=== PATIENT | male | born 1955 | race Caucasian/White ===

== ENCOUNTER 2019-03-22 09:40 | Outpatient (CLI) | payer BC, SELFPAY ==
--- NOTE | 2019-03-22 09:55 | MR_ITS ---
WS: [id number] MRI RIGHT hip, noncontrast. HISTORY: RIGHT hip pain. Trauma 1 year ago. COMPARISON: 01/09/2018. No acute fractures or marrow edema. Previously seen edema and partial tears involving the distal ilio psoas muscle and the gluteus medius and minimus have nearly resolved. Minimal increased signal in the gluteus minimus muscle lateral to the ilium. Significant improvement in the signal abnormality. No m uscle atrophy. No fluid collections. No marrow edema. Mild narrowing of the hip joints bilaterally. Increased signal in the RIGHT labrum consistent with a labral tear. MR/MR hip RT wo con* [id number] IMPRESSION: 1. Significant improvement in the tears involving the RIGHT gluteus minimus and medius muscles and the distal iliopsoas since 01/09/2018. 2. Minimal increased signal consistent with mild myositis in the RIGHT gluteus minimus muscle lateral to the ilium. 3. Superior RIGHT labral tear.
== END 2019-03-22 09:41 | disposition home or self-care (01) ==
LOC: RADSHAW 09:46
PROVIDERS: Family Provider Family Medicine; PCP Family Medicine; Visit Provider Family Medicine
DX: S76.011A Strain of muscle, fascia and tendon of right hip, initial encounter (principal); S73.191A Other sprain of right hip, initial encounter; M25.551 Pain in right hip; X58.XXXA Exposure to other specified factors, initial encounter
CPT/HCPCS: 73721

== ENCOUNTER → 2019-11-01 15:57 | Outpatient (BNVA) | payer BC, SELFPAY | PROVIDERS: Family Provider Family Medicine; PCP Family Medicine; Referring Provider Family Medicine; Visit Provider Dermatology | DX: L57.0 Actinic keratosis (principal); D18.01 Hemangioma of skin and subcutaneous tissue; D48.9 Neoplasm of uncertain behavior, unspecified; L72.0 Epidermal cyst | CPT/HCPCS: 11102; 17000; 17003; 88304; 88305; 99203; 99204 ==

== ENCOUNTER → 2019-11-28 09:48 | Outpatient (BNVA) | payer BC, SELFPAY | PROVIDERS: Family Provider Family Medicine; PCP Family Medicine; Visit Provider Licensed Practical Nurse | DX: M54.6 Pain in thoracic spine (principal); G89.29 Other chronic pain; Z98.890 Other specified postprocedural states; Z91.041 Radiographic dye allergy status; M53.3 Sacrococcygeal disorders, not elsewhere classified; I61.9 Nontraumatic intracerebral hemorrhage, unspecified | CPT/HCPCS: 99204 ==

== ENCOUNTER → 2019-12-05 09:10 | Outpatient (BNVA) | payer BC, SELFPAY | PROVIDERS: Family Provider Family Medicine; PCP Family Medicine; Visit Provider Dermatology | DX: C44.41 Basal cell carcinoma of skin of scalp and neck (principal); C44.91 Basal cell carcinoma of skin, unspecified; D48.9 Neoplasm of uncertain behavior, unspecified | CPT/HCPCS: 11622; 12042; 88304 ==

== ENCOUNTER 2019-12-12 11:43 | Outpatient (CLI) | payer BC, SELFPAY ==
--- NOTE | 2019-12-12 11:45 | MR_ITS ---
WS: [id number] MRI HEAD WITH CONTRAST TECHNIQUE: Sagittal T1, T2 axial, T2 axial FLAIR, axial susceptibility weighted imaging, axial diffus ion weighted images, and coronal T2 images were obtained. Pre and post-T1 axial and post T1 coronal i mages. ADC and FSPGR images. CLINICAL INFORMATION: MENINGIOMA;HEMIPLEGIA/HEMIPARESIS FOLLOWING CEREBRAL INFARCT COMPARISON: CT head 11 16,018 and 10 3018 FINDINGS: Prior postoperative changes prior right frontal craniotomy. Enhancing meningioma involving the midlin e sagittal sinus at the vertex. Surrounding encephalomalacia and gliosis likely due to prior subtotal resection and radiation therapy. Meningioma measures approximately 2.3 x 2.7 x 1.8 cm AP by transver se by craniocaudal. No prior MRI comparisons. On the prior CT this measured approximately 2.2 x 2.1 x 1.4 CM. Dystrophic calcification along the falx. Meningioma involves the midline sagittal sinus with occlusion. Sagittal sinus proximal and distal to the meningioma appears patent. No restricted diffusion to suggest acute ischemia. Ventricular system and basal cisterns are patent. Mild small vessel changes. Mild parenchymal volume loss. Chronic hemorrhagic infarct with encephaloma lacia involving the left thalamus with hemosiderin. Small vessel changes in the marta. Normal vascular flow voids at the skull base. Paranasal sinuses and mastoid air cells are well aerated. Normal optic chiasm and pituitary infundibulum. Chronic infarct in the left periventricular parietal white matter. IMPRESSION: 1. Prior postoperative changes right frontal craniotomy. 2. Enhancing meningioma involving the midline sagittal sinus at the vertex with surrounding encephal omalacia and gliosis. Meningioma measures approximately 2.3 x 2.7 x 1.8 cm slightly increased in size compared to the prior CT in 2018 where it measured 2.2 x 2.1 x 1.4 cm 3. Occlusion of the sagittal sinus at the level of the meningioma. Sagittal sinus proximal and dista l to the meningeal appears patent. 4. Chronic hemorrhagic infarct involving the left thalamus with hemosiderin. Chronic lacunar infarct involving the left periventricular parietal white matter. 5. Mild small vessel changes. Mild volume loss.
--- NOTE | 2019-12-12 11:45 | MR_ITS ---
WS: [id number] INDICATION: Meningioma TECHNIQUE: MR venogram without gadolinium enhancement with maximum intensity projection images. FINDINGS: Again seen is the meningioma involving the sagittal sinus at the midline vertex. High-grade narrowing with occlusion at the level of the meningioma. Suggestion of a tiny amount of peripheral c ollateral flow. Sagittal sinus proximal and distal to the meningioma appears patent. Distal jugular veins are patent. Sigmoid sinus and transverse sinuses are patent. Straight sinus is p atent. Normal internal cerebral veins. No other significant findings. MR/[place] [id number] IMPRESSION: 1. High-grade narrowing with occlusion of the sagittal sinus at the level of t he meningioma. Suggestion of a tiny amount of collateral flow. Sagittal sinus p roximal and distal to the meningioma is intact. 2. Normal sigmoid sinuses and transverse sinuses. 3. Straight sinus and internal cerebral veins are patent.
== END 2019-12-12 11:44 | disposition home or self-care (01) ==
LOC: RADSHAW 11:44
PROVIDERS: PCP Family Medicine; Visit Provider Neurological Surgery
DX: D32.9 Benign neoplasm of meninges, unspecified (principal); I69.351 Hemiplegia and hemiparesis following cerebral infarction affecting right dominant side; I63.89 Other cerebral infarction; I63.81 Other cerebral infarction due to occlusion or stenosis of small artery
CPT/HCPCS: 70544; 70553; A9579

== ENCOUNTER → 2019-12-24 09:29 | Outpatient (BNVA) | payer BC, SELFPAY | PROVIDERS: Family Provider Family Medicine; PCP Family Medicine; Visit Provider Anesthesiology Pain Medicine | DX: G89.0 Central pain syndrome (principal); M54.12 Radiculopathy, cervical region; M54.9 Dorsalgia, unspecified; M54.6 Pain in thoracic spine; I61.9 Nontraumatic intracerebral hemorrhage, unspecified; D32.0 Benign neoplasm of cerebral meninges; M53.3 Sacrococcygeal disorders, not elsewhere classified; S73.191A Other sprain of right hip, initial encounter; X58.XXXA Exposure to other specified factors, initial encounter; Z79.891 Long term (current) use of opiate analgesic | CPT/HCPCS: 99205 ==

== ENCOUNTER → 2020-01-02 14:44 | Outpatient (BNVA) | payer BC, SELFPAY | PROVIDERS: Family Provider Family Medicine; PCP Family Medicine; Visit Provider Licensed Practical Nurse | DX: M51.17 Intervertebral disc disorders with radiculopathy, lumbosacral region (principal); M48.062 Spinal stenosis, lumbar region with neurogenic claudication; M51.34 Other intervertebral disc degeneration, thoracic region; Z98.890 Other specified postprocedural states; Z91.041 Radiographic dye allergy status; M53.3 Sacrococcygeal disorders, not elsewhere classified; M50.90 Cervical disc disorder, unspecified, unspecified cervical region; I61.9 Nontraumatic intracerebral hemorrhage, unspecified | CPT/HCPCS: 99213 ==

== ENCOUNTER 2020-01-22 08:22 | Outpatient (CLI) | payer BC, SELFPAY ==
--- NOTE | 2020-01-22 08:43 | XRR_ITS ---
PROCEDURE INFORMATION: Exam: XR Lumbosacral Spine, 2 or 3 Views Exam date and time: 01/22/2020 8:43 AM Age: 64 years old Clinical indication: Low back pain; Prior surgery; Surgery type: L spine kidney TECHNIQUE: Imaging protocol: XR of the lumbosacral spine, 2 or 3 views. COMPARISON: CR Lumbar Spine 2-3 views* [id number] 08/30/2018 11:19 AM FINDINGS: Bones/joints: No fracture, dislocation or other acute bone or joint abnormalities are seen. Moderate DJD is present especially at the L4-L5 level with disc space narrowing sclerosis and osteophyte formation. There is sclerosis and hypertrophy of the lower lumbar facet joints. There is no malalignment on the flexion and extension views. Soft tissues: The filter projects on the inferior vena cava.. XR/XR lumbar spine f/e only [id number] IMPRESSION: 1. Moderate degenerative disease. 2. No malalignment.
--- NOTE | 2020-01-22 08:43 | MR_ITS ---
WS: [id number] MRI THORACIC SPINE with and without contrast. HISTORY: Thoracic pain COMPARISON: None available. TECHNIQUE: Multiplanar sequences are performed in sagittal and axial planes. Sagittal and axial T1 fa t sat sequences post-ProHance ProHance cc IV. Very slight increase in the thoracic kyphosis. Mild disc space narrowing and desiccation and osteophy tosis. Signal within the cord is normal. Shallow central disc protrusion at C7-T1. T1-2: Small osteophyte or disc protrusion LEFT paracentral. Mild LEFT foraminal narrowing. T2-3: Mild central disc bulging. T3-4: Asymmetric facet joint arthritis, greatest on the RIGHT. Additional small LEFT paracentral dis c protrusion. Very mild narrowing of the thecal sac. T4-5: Moderate sized LEFT paracentral disc protrusion with near contact on the cord. There is slight deformity of the LEFT lateral thoracic cord. T5-6: Moderate-sized central disc protrusion deforming the ventral thecal sac and causing concavity in the thoracic cord. T6-7: Moderate-sized RIGHT paracentral disc protrusion without significant effacement of CSF. T7-8: Shallow central disc protrusion without stenosis. T8-9: Normal. T9-10: Shallow central disc protrusion. T10-11: Mild facet joint arthritis. T11-12: Mild facet joint arthritis. Postcontrast images are negative for discitis or osteomyelitis. Subcutaneous nodule enhancing in the soft tissues posteriorly at the T7-8 level extends over a length of 3.2 cm and probably representing a sebaceous cyst. MR/MR thoracic spine wo/w [id number] IMPRESSION: 1. Multilevel small to moderate disc protrusions as described above. 2. Most significant disc protrusions at T4-5, T5-6, T6-7 and T7-8. Thoracic di scs are causing mild deformity of the thoracic cord on the LEFT at T4-5 and nicolette trally at T5-6. 3. No fracture. 4. No cord edema.
--- NOTE | 2020-01-22 08:43 | MR_ITS ---
WS: [id number] MRI LUMBAR SPINE WITH AND WITHOUT CONTRAST HISTORY: Low back pain COMPARISON: None available. TECHNIQUE: Sagittal and axial multisequence imaging is submitted. Sagittal and axial T1 fat sat seque nces post-ProHance 17 cc IV. Mild increase in the thoracic kyphosis. Thoracic spine MRI examination has been performed on the same day, please refer to that report for further details. Straightening of the normal lumbar lordosis. Disc space narrowing and desiccation most significant at L4-5. No marrow edema or fracture. Conus terminates normally at L1. L1-L2: Mild asymmetric LEFT ligamentum flavum hypertrophy. No stenosis. L2-L3: Mild annular disc bulging and osteophytic ridging greatest to the LEFT. Mild facet and ligamen audrey flavum hypertrophy. L3-L4: Mild annular disc bulging and osteophytic ridging. Shallow LEFT paracentral disc protrusion. D isc protrusion abuts the L4 nerve root in the LEFT subarticular recess. Very mild central canal narro wing. L4-L5: Mild osteophytic ridging. Osteophytosis encroaches into the subarticular foramen. Mild bilater al foraminal narrowing, slightly greater on the LEFT. There is increased hypertrophic bone extending into the LEFT subarticular recess. L5-S1: Bilateral facet joint arthritis, RIGHT greater than LEFT. Facet joint arthritis encroaches and displaces the RIGHT S1 nerve root anteriorly. Very mild central stenosis. Mild bilateral foraminal s tenosis due to combination of facet disease and osteophytosis. No discitis or osteomyelitis. No epidural abscess. MR/MR lumbar spine wo/w con [id number] IMPRESSION: 1. Advanced degenerative disc disease at L4-5 and mild spondylosis otherwise. 2. Increased hypertrophic bone in the LEFT subarticular recess of L4-5 encroac anjali into the subarticular recess and foramen. Moderate narrowing of the subart icular recess on the LEFT. 3. Small disc protrusion abuts the LEFT L4 nerve root in the L3-4 subarticular recess. Very minimal narrowing of the central canal. 4. Facet joint arthritis and osteophyte displaces the RIGHT S1 nerve root ante riorly.
[2020-01-22 10:36] LABS: Blood Urea Nitrogen 14 mg/dL (8-23); Glomerular Filtration Rate 136.1 mL/min (90-130)
== END 2020-01-22 08:23 | disposition home or self-care (01) ==
LOC: RADWPI 08:27
PROVIDERS: PCP Family Medicine; Visit Provider Licensed Practical Nurse
DX: M51.24 Other intervertebral disc displacement, thoracic region (principal); M51.36 Other intervertebral disc degeneration, lumbar region; M47.816 Spondylosis without myelopathy or radiculopathy, lumbar region; M51.26 Other intervertebral disc displacement, lumbar region; M25.78 Osteophyte, vertebrae
CPT/HCPCS: 72120; 72157; 72158; 82565; 84520; A9579

== ENCOUNTER → 2020-02-06 10:00 | Outpatient (BNVA) | payer BC, SELFPAY | PROVIDERS: PCP Family Medicine; Visit Provider Licensed Practical Nurse | DX: M51.17 Intervertebral disc disorders with radiculopathy, lumbosacral region (principal); L72.9 Follicular cyst of the skin and subcutaneous tissue, unspecified; M48.062 Spinal stenosis, lumbar region with neurogenic claudication; M47.816 Spondylosis without myelopathy or radiculopathy, lumbar region; M51.34 Other intervertebral disc degeneration, thoracic region; Z98.890 Other specified postprocedural states | CPT/HCPCS: 99213 ==

== ENCOUNTER → 2020-02-08 09:22 | Outpatient (BNVA) | payer BC, SELFPAY | PROVIDERS: PCP Family Medicine; Visit Provider Anesthesiology Pain Medicine | DX: G89.0 Central pain syndrome (principal); M79.604 Pain in right leg; M54.9 Dorsalgia, unspecified; M51.17 Intervertebral disc disorders with radiculopathy, lumbosacral region; I61.9 Nontraumatic intracerebral hemorrhage, unspecified; Z91.041 Radiographic dye allergy status; D32.0 Benign neoplasm of cerebral meninges; M53.3 Sacrococcygeal disorders, not elsewhere classified; S73.191A Other sprain of right hip, initial encounter; X58.XXXA Exposure to other specified factors, initial encounter | CPT/HCPCS: 99214 ==

== ENCOUNTER → 2020-05-01 10:53 | Outpatient (BNVA) | payer OTHER, SELFPAY | PROVIDERS: PCP Family Medicine; Visit Provider Orthopaedic Surgery | DX: Z01.812 Encounter for preprocedural laboratory examination (principal); M48.062 Spinal stenosis, lumbar region with neurogenic claudication | CPT/HCPCS: 87635 ==

== ENCOUNTER 2020-06-30 14:29 | Outpatient (CLI) | payer MEDICARE, SELFPAY ==
--- NOTE | 2020-06-30 14:52 | XRR_ITS ---
PROCEDURE INFORMATION: Exam: XR Right Hip Exam date and time: 06/30/2020 2:56 PM Age: 64 years old Clinical indication: Pain and injury or trauma; Fall; Blunt trauma (contusions or hematomas); Hip pain; Right hip; Injury date: 06/26/20; Injury details: Ivc filter, kidney; Prior surgery; Additional info: Right hip pain TECHNIQUE: Imaging protocol: XR Right hip. Views: 1 view hip with pelvis when performed. COMPARISON: MR hip RT wo con* [id number] 03/22/2019 12:04 PM FINDINGS: Bones/joints: Unremarkable. No acute fracture. Soft tissues: Unremarkable. XR/XR hip RT 2-3V wo/w pel* [id number] IMPRESSION: No acute findings.
--- NOTE | 2020-06-30 14:53 | XRR_ITS ---
PROCEDURE INFORMATION: Exam: XR Right Shoulder Exam date and time: 06/30/2020 2:56 PM Age: 64 years old Clinical indication: Pain and injury or trauma; Fall; Bleeding/hemorrhage; Shoulder; Right; Injury date: 06/26/20; Additional info: Right shoulder pain TECHNIQUE: Imaging protocol: XR Right shoulder. Views: 2 or more views. COMPARISON: CR Shoulder 2+ views RIGHT* [id number] 02/23/2018 1:36 PM FINDINGS: Bones/joints: Normal. Soft tissues: Normal. XR/XR shoulder RT min 2V* [id number] IMPRESSION: No acute findings.
--- NOTE | 2020-06-30 14:54 | XRR_ITS ---
PROCEDURE INFORMATION: Exam: XR Lumbosacral Spine Exam date and time: 06/30/2020 2:56 PM Age: 64 years old Clinical indication: Pain and injury or trauma; Fall; Blunt trauma (contusions or hematomas); Low back pain; Injury date: 06/26/20; Prior surgery; Surgery type: Back surgery x 3; Additional info: Lumbar radiculopathy TECHNIQUE: Imaging protocol: XR of the lumbosacral spine. Views: 2 or 3 views. COMPARISON: MR lumbar spine wo/w con [id number] 01/22/2020 9:17 AM FINDINGS: Bones/joints: Mild osteoarthritis is seen. No acute fracture. Normal alignment. Soft tissues: Unremarkable. A vena cava filter is in good position. XR/XR lumbar spine 2-3V* [id number] IMPRESSION: 1. Mild osteoarthritis 2. No acute bone abnormality. 3. Vena cava filter in good position
--- NOTE | 2020-06-30 14:54 | XRR_ITS ---
PROCEDURE INFORMATION: Exam: XR Thoracic Spine Exam date and time: 06/30/2020 2:56 PM Age: 64 years old Clinical indication: Pain and injury or trauma; Fall; Blunt trauma (contusions or hematomas); Pain in thoracic spine; Injury date: 06/26/20; Prior surgery; Surgery type: Back x 3, ivc filter; Additional info: Chronic pain TECHNIQUE: Imaging protocol: XR of the thoracic spine. Views: 3 views. COMPARISON: MR thoracic spine wo/w [id number] 01/22/2020 9:17 AM FINDINGS: Bones/joints: Moderate osteoarthritis is seen with multilevel intervertebral disc space narrowing and bone spurs with bridging. No acute fracture. Normal alignment. Soft tissues: Unremarkable. XR/XR thoracic spine 3V* [id number] IMPRESSION: 1. Multilevel osteoarthritis 2. Otherwise negative for acute bony abnormality
== END 2020-06-30 14:30 | disposition home or self-care (01) ==
PROVIDERS: PCP Family Medicine; Visit Provider Electrodiagnostic Medicine
DX: M25.551 Pain in right hip (principal); M25.511 Pain in right shoulder; G89.29 Other chronic pain; M54.16 Radiculopathy, lumbar region; M47.814 Spondylosis without myelopathy or radiculopathy, thoracic region; M47.816 Spondylosis without myelopathy or radiculopathy, lumbar region
CPT/HCPCS: 72072; 72100; 73030; 73502

== ENCOUNTER → 2020-11-07 11:19 | Outpatient (BNVA) | payer MEDICARE, SELFPAY | PROVIDERS: PCP Family Medicine; Visit Provider Orthopaedic Surgery | DX: Z01.812 Encounter for preprocedural laboratory examination (principal); Z20.822 Contact with and (suspected) exposure to COVID-19 | CPT/HCPCS: 87635 ==

== ENCOUNTER 2020-11-12 07:28 | Day surgery (SDC) | payer MEDICARE, SELFPAY ==
[2020-11-05 09:27] VITALS: BMI 32.7
--- NOTE | 2020-11-05 09:57 | P.ANESASSM_ITS ---
Pre-Anesthetic Assessment Pre-Anesthetic Assessment: Height/Weight: Height 1.93 m Weight 122.016 kg Preop Diagnosis: back pain Proposed Procedure: Operation Date: 11/12/20 11:40 Proposed Procedures p MIS decompression L3/4 03743 L4/5 03660 L5/S1 24803 M48.062(Not Applicable) - Terence Espinoza DO Familial anesthetic complications: none Social: Social History: No alcohol and No tobacco Exam: Pre-Anes Outpt Exam: alert, oriented x 3, clear to auscultation bilaterally and regular rate & rhythm Airway: Cervical ROM: WNL MP: 1 Dentition: Full CV/HEM: CV/HEM: DVT and HTN Comments: IVC filter : Comments: hx kidney cancer s/p partial nephrectomy Metabolic: Metabolic: DM Musc/skel: Musc/skel: Lower Back Pain Neuropsych: Neuropsych: CVA Comments: meningioma s/p resection 1999 Anesthetic Plan: ASA status: 3 Anesthesia: General Risk of > 500 ml blood loss (7ml/kg in children): No PFSH Anesthesia PFSH: Medical History Accelerated essential hypertension Allergy to iodinated contrast media Cervical disc disease Diabetes mellitus History of DVT (deep vein thrombosis) History of nonmelanoma skin cancer History of renal cell cancer Intervertebral disc disorder with radiculopathy of lumbosacral region Labral tear of right hip joint Lumbar stenosis with neurogenic claudication 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 Lumbar decompression 1986 [place] Lumbar decompression. Hx of cholecystectomy Family History Mother Stroke Grandmother Stroke Brother Stroke Social History Smoking and tobacco status: former smoker Second hand smoke exposure: No Alcohol intake: never Household members: spouse Marital status: Current occupational status: retired and disabled History of recent travel: No Data Anesthesia Cardiac Studies: No Data to Display
--- NOTE | 2020-11-12 | XR_ITS ---
WS: [id number] Lumbar spine, C-arm fluoroscopy, 11/12/2020 Clinical Data: lumbar decompression Comparison: None. Findings: Dr. Espinoza performed a lumbar decompression at L3-L4. XR/XR lumbar spine 2-3V* [id number] Impression: Lumbar decompression at L3-L4.
--- NOTE | 2020-11-12 | SCC_ITS ---
Procedure Done: 1. Right L3/4 laminectomy with partial facetectomy 2. Right revision L4/5 laminectomy with ppartial factectomy 3. Right revision L5/S1 laminectommy with partial facetectomy 46.8 seconds of fluoroscopic guidance, for a cumulative dose of 31.04 mGy, was provided to Dr. Espinoza by the radiology department. C-arm images of the lumbar spine were saved for the patient's permanent record. BOUCHRAD
--- NOTE | 2020-11-12 07:54 | ECG_ITS ---
[facility] Test Date: 2020-11-12 Pat Name: Kirby Boudreaux Department: Room: Gender: Male Deputy Director: : [id number] Requested By: Debbie Nelson Order Number: [id number] Hilda MD: Cris Chery M.D. Measurements Intervals [place] Rate: 69 P: 38 PA: 218 QRS: 46 QRSD: 91 T: 41 QT: 361 QTc: 387 Interpretive Statements SINUS RHYTHM WITH FIRST DEGREE AV BLOCK Compared to ECG 12/07/2017 20:02:54 No significant changes Electronically Signed On 11-12-2020 17:03:58 CDT by Cris Chery M.D. [id number]
--- NOTE | 2020-11-12 08:09 | PM.HP ---
Providers/Chief Complaint Primary Care Provider: Virgilio Devries MD Chief Complaint: MIS decompression L3/4 35836 L4/5 78376 L5/S1 6304 History of Present Illness Kirby Boudreaux is a 64 year old male Details: This is an established 64 year old male patient here today for follow up evaluation of his lower back pain. Onset: gradual Duration: years Characteristics: muscle cramping Severity: mild Location: entire right side of the back and down the right leg Radiating symptoms: foot and neck Aggravating factors: movement Alleviating factors: rest Neuro deficits: Patient denies numbness, tingling, weakness, incontinence of bowel/bladder, saddle anesthesia. Prior tx: multiple back surgeries, cortisone injections. Review of Systems Narrative: General ROS: negative for weight changes, fever ENT ROS: negative for nasal congestion, drainage or bleeding, sore throat, dysphagia or ear pain Eyes: PERRL Hematological and Lymphatic ROS: negative for swollen glands or abnormal bleeding Endocrine ROS: negative for polyuria/polydpsia or new changes in weight Respiratory ROS: negative for cough, shortness of breath, or wheezing Cardiovascular ROS: negative for chest pain or dyspnea on exertion Gastrointestinal ROS: negative for reflux, abdominal pain, change in bowel habits, or black or bloody stools Musculoskeletal ROS: negative for back pain, neck pain, or joint pain or swelling except for current problem Neurological ROS: negative for TIA or stoke symptoms Skin: no rashes Medications/Allergies Home Medications Medication Instructions Recorded Confirmed Last Taken Type amlodipine 10 mg tablet 10 mg PO DAILY 04/25/19 11/12/20 11/12/20 History aspirin 81 mg tablet,delayed 81 mg PO DAILY 04/25/19 11/12/20 11/10/20 History release atorvastatin 10 mg tablet 10 mg PO DAILY 04/25/19 11/12/20 11/11/20 History gabapentin 600 mg tablet 600 mg PO TID 04/25/19 11/12/20 11/11/20 History hydrocodone 5 mg-acetaminophen 325 1 tab PO Q8H PRN 04/25/19 11/12/20 11/11/20 History mg tablet levetiracetam 500 mg tablet 500 mg PO BID 04/25/19 11/12/20 11/11/20 History losartan 100 mg tablet 100 mg PO DAILY 04/25/19 11/12/20 11/11/20 History tamsulosin 0.4 mg capsule 0.8 mg PO DAILY 04/25/19 11/12/20 11/11/20 History carvedilol 12.5 mg tablet 12.5 mg PO BID 11/01/19 11/12/20 11/11/20 History cyclobenzaprine 10 mg tablet 10 mg PO TID 02/08/20 11/12/20 11/11/20 History duloxetine 30 mg capsule,delayed 30 mg PO DAILY 06/06/20 11/12/20 11/11/20 History release Allergies Allergy/AdvReac Type Severity Reaction Status Date / Time Iodinated Contrast Media Allergy anaphylaxis Verified 11/12/20 08:02 shrimp Allergy anaphylaxix Verified 11/12/20 08:02 PFSH Acute PFSH: Medical History Accelerated essential hypertension Allergy to iodinated contrast media Cervical disc disease Diabetes mellitus History of DVT (deep vein thrombosis) History of nonmelanoma skin cancer History of renal cell cancer Intervertebral disc disorder with radiculopathy of lumbosacral region Labral tear of right hip joint Lumbar stenosis with neurogenic claudication 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 [facility] Lumbar decompression 1995 [facility] Lumbar decompression 1986 [place] Lumbar decompression. Hx of cholecystectomy Family History Mother Stroke Grandmother Stroke Brother Stroke Social History Smoking and tobacco status: former smoker Second hand smoke exposure: No Alcohol intake: never Household members: spouse Marital status: Current occupational status: retired and disabled History of recent travel: No Physical Exam Narrative: EXAM NARRATIVE: CONSTITUTIONAL: The patient is a normal appearing [] in no apparent distress. GENERAL: Patient in no acute distress. CARDIAC: Regular rate and rhythm. CHEST: Normal inspiratory effort, normal respiratory rate. ABDOMEN: Soft and nontender. SKIN: Clear, warm and intact. NEURO?PSYCH: The patient is alert and oriented to person, place and time. Sensorv /SILT Motor StrengthShoulder abduction C5 5/5Wrist extension C6 5/5Elbow extension C7 5/5Hand Anesthesiologist And Critical Care C8 5/5Finger abduction T15/5 Radial/ Ulnar/ Median n intact LowerSensory (SILT)Motor StrengthHin flexion L2/3Ant/inner thigh 5/5Hip adduction L2/3 5/5Knee extension L4 Lat thigh, 5/5Toe dorsiflexion L5 5/5Ankle dorsiflexion L5/ O46Nycbuxh flexion S1 5/5 DTRBleeps 2+Triceps 2+Brachioradialis 2+Patellar 2+Achilles 2+ MUSCULOSKELETAL: [] UPPEREXTREMITIES: The patient had full active ROM in fingers, wrist, elbow, and shoulder. The patient demonstrated ability to fully flex/extend/abduct/adduct fingers, make ok sign, cross 2nd/3rd digits, extend 1st digit fully.. Radial pulse 2+, CR<2 seconds. LOWER EXTREMITIES: Pt has full, active ROM of toes, ankle, knee, and hip. Dorsalis pedis/posterior tibialis pulses 2+, CR<2 seconds. SPINE: Skin warm, dry, intact. A&P Assessment and plan (1) Lumbar stenosis with neurogenic claudication: Status: Acute Additional A&P Information failed conservative therapy Attestations Medical Necessity Statement*: failed conservative tx Coding Level of Care Code Acute Water Pollution Control Technician for [facility] Diagnoses Lumbar stenosis with neurogenic claudication M48.062
--- NOTE | 2020-11-12 08:11 | P.ANESUD_ITS ---
Pre-Anesthetic Update Pre-Anesthetic Assessment: Date of Surgery/Procedure: 11/12/20 Preop Kelly gnosis: back pain Proposed Procedure: Operation Date: 11/12/20 08:45 Proposed Procedures p MIS decompression L3/4 72626 L4/5 13617 L5/S1 96877 M48.062(Not Applicable) - Terence Espinoza, DO Any changes to Pre-Anesthetic Assessment?: No Exam: Pre-Anes Outpt Exam: alert, oriented x 3, clear to auscultation bilaterally and regular rate & rhythm Cardiac Studies: No Data to Display
--- NOTE | 2020-11-12 08:11 | ANES.PAUD2 ---
Pre-Anesthetic Update Pre-Anesthetic Assessment: Date of Surgery/Procedure: 11/12/20 Preop Diagnosis: back pain Proposed Procedure: Operation Date: 11/12/20 08:45 Proposed Procedures p MIS decompression L3/4 83989 L4/5 49753 L5/S1 05668 M48.062(Not Applicable) - Terence Espinoza, DO Any changes to Pre-Anesthetic Assessment?: No Exam: Pre-Anes Outpt Exam: alert, oriented x 3, clear to auscultation bilaterally and regular rate & rhythm Cardiac Studies: No Data to Display
[2020-11-12 08:17] LABS: Glucose Point of Care 137 mg/dL (70-110)
[2020-11-12 08:27] VITALS: BP 126/74; PULSE 81; RESP 18; TEMP 36.8; O2SAT 97
[2020-11-12] MEDS: sodium chloride 0.9% 1,000 ML 30 ML IV (08:31)
[2020-11-12 08:36] LABS: INR 0.95 (0.8-1.2)
--- NOTE | 2020-11-12 10:44 | PM.OP ---
Operative Report Date of procedure: November 12, 2020 Pre-op Diagnosis: lumbar stenosis with neurogenic cladication Post-op diagnosis: same Procedure Done: 1. Right L3/4 laminectomy with partial facetectomy 2. Right revision L4/5 laminectomy with ppartial factectomy 3. Right revision L5/S1 laminectommy with partial facetectomy Surgeon: Terence Espinoza Anesthesia: General Estimated blood loss (mL): 25 Condition: stable Disposition: PACU Procedure: 1. Right L3/4 laminectomy with partial facetectomy 2. Right revision L4/5 laminectomy with ppartial factectomy 3. Right revision L5/S1 laminectommy with partial facetectomy Patient is brought to the operative suite. After undergoing anesthesia they are placed in the supine position. All areas of impingement are well padded. Patient is then prepped and draped in the normal sterile fashion. A skin incision is made over the L3/4 level. This is confirmed under c-arm guidance. A series of dilators are passed and the tubular retractor is docked on the L3 lamina. A bovie is used to clear the soft tissue off the lamina and the L 3/4 facet joint. A high speed daniela is then used to perform the laminectomy and take down the medial aspect of the L 3/4 facet joint. A kerrison rongeure was then used to take down the remaining lamina and smooth the edge of the laminectomy up to the point where the ligamentum flavum attaches. Attention was then brought to the medial aspect of the facet joint. The remaining medial aspect of the superior and inferior aspect of the facet joint were taken down with the kerrison from the pedicle of L3 to L 4. The facet joint had significant hypertrophy. Attention was then brought to the Ligamentum Flavum. The ligament was taken down from the lamina of L3 to L4 and out medially to the remaining facet joint. The ligament was thick. The dura was then exposed. The dura was in good repair. The L3 nerve was then traced with a curette out the L3/4 foramen and found to be adequately decompressed. The L4 nerve was traced with a curette around the L4 pedicle. The lateral recess was opened with a kerrison helping to further decompress the L4 nerve. Wound is then irrigated copiously with saline and surgiflo is used to stop any bleeding. The tubular retractor is removed tion. A skin incision is made over the L4/5 level. This is confirmed under c-arm guidance. A series of dilators are passed and the tubular retractor is docked on the L4 lamina. A bovie is used to clear the soft tissue off the lamina and the L 4/5 facet joint. A high speed daniela is then used to perform the laminectomy and take down the medial aspect of the L 4/5 facet joint. A kerrison rongeure was then used to take down the remaining lamina and smooth the edge of the laminectomy up to the point where the ligamentum flavum attaches. There was a significant amount of scarring. the dura was peeled of the facet inorder to do the decompression. Attention was then brought to the medial aspect of the facet joint. The remaining medial aspect of the superior and inferior aspect of the facet joint were taken down with the kerrison from the pedicle of L4 to L 5. The facet joint had significant hypertrophy. Attention was then brought to the Ligamentum Flavum. The ligament was taken down from the lamina of L4 to L5 and out medially to the remaining facet joint. The ligament was thick. The dura was then exposed. The dura was in good repair. The L4 nerve was then traced with a curette out the L4/5 foramen and found to be adequately decompressed. The L5 nerve was traced with a curette around the L5 pedicle. The lateral recess was opened with a kerrison helping to further decompress the L5 nerve. Wound is then irrigated copiously with saline and surgiflo is used to stop any bleeding. The tubular retractor is removed A skin incision is made over the L5/S1 level. This is confirmed under c-arm guidance. A series of dilators are passed and the tubular retractor is docked on the L5 lamina. A bovie is used to clear the soft tissue off the lamina and the L 5/S1 facet joint. A high speed daniela is then used to perform the laminectomy and take down the medial aspect of the L 5/S1 facet joint. A kerrison rongeure was then used to take down the remaining lamina and smooth the edge of the laminectomy up to the point where the ligamentum flavum attaches.here was a significant amount of scarring. the dura was peeled of the facet inorder to do the decompression. Attention was then brought to the medial aspect of the facet joint. The remaining medial aspect of the superior and inferior aspect of the facet joint were taken down with the kerrison from the pedicle of L5 to S1. The facet joint had significant hypertrophy. Attention was then brought to the Ligamentum Flavum. The ligament was taken down from the lamina of L5 to S1 and out medially to the remaining facet joint. The ligament was thick. The dura was then exposed. The dura was in good repair. The L5 nerve was then traced with a curette out the L5/S1 foramen and found to be adequately decompressed. The S1 nerve was traced with a curette around the S1 pedicle. The lateral recess was opened with a kerrison helping to further decompress the S1 nerve. Wound is then irrigated copiously with saline and surgiflo is used to stop any bleeding. The tubular retractor is removed and the wound is closed with vicryl and monocryl suture. Glue is then used to protect the wound. A sterile dressing is then placed. Patient was then placed in the supine position and transferred to the PACU in stable condition
[2020-11-12 10:53] VITALS: BP 136/78; PULSE 85; RESP 15; TEMP 36.2; O2SAT 97
[2020-11-12 11:00] VITALS: BP 117/71; PULSE 83; RESP 13; O2SAT 100
[2020-11-12 11:05] VITALS: BP 113/68; PULSE 83; RESP 13; TEMP 36.2; O2SAT 95
[2020-11-12 11:11] VITALS: BP 107/67; PULSE 82; RESP 16; TEMP 36.2; O2SAT 95
[2020-11-12 11:33] VITALS: BP 106/65; PULSE 78; RESP 18; TEMP 36.1; O2SAT 92
[2020-11-12] MEDS: HYDROcodone-acetaminophen 5-325 mg Tablet 1 TAB PO (11:50)
--- NOTE | 2020-11-12 12:39 | PC.NURSE ---
PT AND FAMILY WANTED TO WAIT TO TALK TO DR DIANA UNTIL LEAVING ABOUT SOME NUMBNESS NOTED IN L LEG. DR DIANA CAME TO ROOM AFTER HIS OR CASE WAS DONE, ANSWERED ALL QUESTIONS TO SATISFACTION. DENIES PAIN FROM PAIN PILL. TAKEN TO PERSONAL VEHICLE WITH ALL BELONGINGS VIA W/C BY French HYDE RN. DENIES NEEDS AT THIS TIME.
--- NOTE | 2020-11-12 13:59 | ANE.PACU2 ---
Inpatient post-anesthesia follow up: Airway intact: Yes Vital signs: Temperature 97.0 F Pulse Rate 78 Respiratory Rate 18 Blood Pressure 106/65 Pulse Oximetry 92 Oxygen Delivery Me thod Room Air Oxygen Flow Rate 6 Fraction of Inspir ed Oxygen Hydration adequate: Yes Nausea and vomiting: No Pain level: 3 Mental status: Baseline
== END 2020-11-12 12:41 | disposition home or self-care (01) ==
PROVIDERS: Anesthesiology; PCP Family Medicine; Visit Provider Orthopaedic Surgery
PROC: (CPT 63005; principal; 2020-11-12 08:35)
DX: M48.062 Spinal stenosis, lumbar region with neurogenic claudication (principal); Z86.718 Personal history of other venous thrombosis and embolism; I10 Essential (primary) hypertension; Z85.528 Personal history of other malignant neoplasm of kidney; Z90.5 Acquired absence of kidney; E11.9 Type 2 diabetes mellitus without complications; Z87.891 Personal history of nicotine dependence; Z79.82 Long term (current) use of aspirin
CPT/HCPCS: 63047; 63048 ×2; 36415; 36416; 72100; 76000; 82962; 85610; 93005; J0690; J2370; J2704; J3010; J3490; J7030

== ENCOUNTER → 2020-12-18 08:58 | Outpatient (BNVA) | payer MEDICARE, SELFPAY | PROVIDERS: PCP Family Medicine; Visit Provider Physician Assistant | DX: Z48.89 Encounter for other specified surgical aftercare (principal) | CPT/HCPCS: 72100 ==

== ENCOUNTER 2021-02-24 09:51 | Outpatient (CLI) | payer MEDICARE, SELFPAY ==
--- NOTE | 2021-02-24 09:58 | MR_ITS ---
WS: [id number] MRI LUMBAR SPINE NONCONTRAST TECHNIQUE: Sagittal T1, T2 and STIR imaging. Axial T1 and T2 imaging. CLINICAL INFORMATION: POSTPROCEDURAL STATES COMPARISON: MRI January 22, 2020 FINDINGS: Mild lumbar curve. No acute compression. No high-grade central canal stenosis. Postoperative changes right L3-4, right L4-5, and right L5-S1 hemilaminectomies. Postoperative changes are new since 2019 L1-L2: Mild disc bulging with slight narrowing of the left subarticular recess. Mild facet arthropath y. Spinal canal and foramen are patent. L2-L3: Mild disc bulging with slight effacement of ventral thecal sac. Slight narrowing of the left s ubarticular recess. Mild facet arthropathy. Mild left foraminal narrowing. L3-L4: Shallow left pericentral protrusion with slight impingement on the traversing left L4 nerve ro ot. Mild central canal stenosis. Mild left foraminal narrowing. Right foramen is patent. Mild facet a rthropathy. L4-L5: Mild disc bulging and osteophytic ridging. Moderate facet arthropathy. Slight narrowing of the subarticular recess bilaterally. Mild central canal stenosis. Mild bilateral foraminal narrowing. L5-S1: Mild disc osteophytic ridging. Advanced facet arthropathy. Impingement on the traversing right S1 nerve root in the subarticular recess. Mild left foraminal narrowing. Small peripelvic and renal cortical cysts. Mild cervical central canal stenosis C4-C6 seen on the sco ut imaging. Small central protrusion seen in the thoracic spine at T4-T6 worse at T5-T6 with slight c ontact of the thoracic cord. MR/MR lumbar spine wo con* [id number] IMPRESSION: 1. Mild lumbar curve. No acute compression. No high-grade central canal stenos is. 2. Prior postoperative changes right hemilaminectomy is L3-L4 L4-L5 and L5-S1. 3. Tiny left shallow pericentral disc bulging L3-4 with slight impingement tra versing left L4 nerve root in the subarticular recess. Mild left L3-4 foraminal narrowing. 4. Mild central canal stenosis L3-L4 and L4-L5. Narrowing of the bilateral L4- 5 subarticular recess. 5. Disc osteophyte complex L5-S1 in combination with facet arthropathy impinge s the traversing right S1 nerve root. Mild left to right narrowing of the theca l sac. 6. Moderate facet arthropathy L3-L5.
== END 2021-02-24 09:52 | disposition home or self-care (01) ==
PROVIDERS: PCP Family Medicine; Visit Provider Physician Assistant
DX: Z98.890 Other specified postprocedural states (principal); M47.816 Spondylosis without myelopathy or radiculopathy, lumbar region; M25.78 Osteophyte, vertebrae; M48.061 Spinal stenosis, lumbar region without neurogenic claudication; M51.26 Other intervertebral disc displacement, lumbar region
CPT/HCPCS: 72148

== ENCOUNTER → 2021-02-25 07:54 | Outpatient (BNVA) | payer MEDICARE, SELFPAY | PROVIDERS: PCP Family Medicine; Referring Provider Physician Assistant; Visit Provider Specialist | DX: I69.151 Hemiplegia and hemiparesis following nontraumatic intracerebral hemorrhage affecting right dominant side (principal); I69.198 Other sequelae of nontraumatic intracerebral hemorrhage; G89.0 Central pain syndrome; G62.89 Other specified polyneuropathies; M50.90 Cervical disc disorder, unspecified, unspecified cervical region; Z98.890 Other specified postprocedural states; Z87.891 Personal history of nicotine dependence | CPT/HCPCS: 95861; 99204; 99205 ==

== ENCOUNTER 2021-03-10 09:51 | Outpatient (CLI) | payer MEDICARE, SELFPAY ==
--- NOTE | 2021-03-10 10:01 | XRR_ITS ---
PROCEDURE INFORMATION: Exam: XR Right Hip Exam date and time: 03/10/2021 10:01 AM Age: 65 years old Clinical indication: Hip pain; Right hip; Patient HX: Pain to hip x 3 years after stroke; Additional info: R hip pain TECHNIQUE: Imaging protocol: XR Right hip. Views: 1 view hip with pelvis when performed. Total images: 2 COMPARISON: CR XR hip RT 2-3V wo/w pel* [id number] 06/30/2020 3:00 PM FINDINGS: Bones/joints: Enthesophytes are present on the greater trochanter and ischial tuberosity. Small osseous bump at the femoral head neck junction unchanged from prior exam but can cause JIMMY. No acute fracture nor subluxation. No osseous erosion nor periosteal reaction. Soft tissues: Unremarkable. XR/XR hip RT 2-3V wo/w pel* [id number] IMPRESSION: 1. Small osseous bump at the femoral head neck junction unchanged from prior exam but can cause JIMMY. 2. No acute osseous pathology.
--- NOTE | 2021-03-10 10:01 | XRR_ITS ---
PROCEDURE INFORMATION: Exam: XR Right Knee Exam date and time: 03/10/2021 10:01 AM Age: 65 years old Clinical indication: Pain; Swelling or effusion of joint; Knee; Right; Additional info: R knee pain TECHNIQUE: Imaging protocol: XR Right knee. Views: 3 views. Total images: 3 COMPARISON: CR Foot 2 views, RIGHT [id number] 12/11/2014 10:33 AM FINDINGS: Bones/joints: Moderate marginal osteophytes are noted. Enthesophyte of the quadriceps tendon insertion site on the patella. No acute fracture nor subluxation. No osseous erosion nor periosteal reaction. Small joint effusion. Soft tissues: Normal. XR/XR knee RT 3V* [id number] IMPRESSION: 1. Moderate marginal osteophytes are noted. 2. Enthesophyte of the quadriceps tendon insertion site on the patella. 3. No acute osseous pathology. 4. Small joint effusion.
== END 2021-03-10 09:52 | disposition home or self-care (01) ==
PROVIDERS: PCP Family Medicine; Visit Provider Family Medicine
DX: M25.551 Pain in right hip (principal); M25.561 Pain in right knee; M25.761 Osteophyte, right knee; M25.461 Effusion, right knee
CPT/HCPCS: 73502; 73562

== ENCOUNTER 2021-04-07 07:43 | Outpatient (CLI) | payer MEDICARE, SELFPAY ==
--- NOTE | 2021-04-07 07:55 | MR_ITS ---
WS: [email or web address] MRI BRAIN WITHOUT CONTRAST HISTORY: History of brain tumor. COMPARISON: 12/12/2019 and MRI. TECHNIQUE: Diffusion imaging, multiplanar T1, T2 and FLAIR imaging obtained. Patient is status post RIGHT frontal craniotomy. There is a lobulated soft tissue mass centered at th e vertex extending bilaterally into the sagittal sinus. This mass is noted to be a meningioma as been previously biopsied. Mass measures 2.5 x 2.7 x 1.8 cm. The enhancement pattern cannot be determined as no contrast was given for this examination. There is adjacent encephalomalacia and gliosis. Probab ly from prior biopsy and possible radiation. Mass extends across the superior sagittal sinus. As comp ared to the prior study there is been no obvious interval change. No acute diffusion-weighted infarcts. Prior lacunar infarct with hemorrhage centered in the LEFT thal amus is unchanged. There is extensive confluent periventricular white matter signal with mild progres reuben since the prior examination. No new infarct. Any change in the sagittal sinus occlusion is limit ed without IV contrast. Mild volume loss in the cerebellum and cerebrum. Ventricles and extra-axial spaces are normal. No inferior displacement of cerebellar tonsils. The sella turcica and pituitary gland are unremarkabl e. Paranasal sinuses: Clear. Mastoid air cells: Normal. Calvarium and scalp: Intact. MR/MR head wo con* [id number] IMPRESSION: 1. Postoperative changes of a RIGHT frontal craniotomy are unchanged. 2. Lobulated soft tissue mass centered at the vertex extending across the sagi ttal sinus measures 2.5 x 2.7 x 1.8 cm. Not significantly increased in size or changed as compared to 12/12/2019. This study was performed without IV contrast so subtle areas of effacement or progression may not be evident. The adjacent g liosis and encephalomalacia are stable. 3. Prior hemorrhagic lacunar infarct in the LEFT thalamus. 4. Mild progression of chronic ischemic changes surrounding the ventricles.
== END 2021-04-07 07:44 | disposition home or self-care (01) ==
LOC: RAD 07:53
PROVIDERS: PCP Family Medicine; Visit Provider Specialist
DX: Z98.890 Other specified postprocedural states (principal); D32.0 Benign neoplasm of cerebral meninges; I61.9 Nontraumatic intracerebral hemorrhage, unspecified; M50.90 Cervical disc disorder, unspecified, unspecified cervical region; Z85.841 Personal history of malignant neoplasm of brain; I63.81 Other cerebral infarction due to occlusion or stenosis of small artery
CPT/HCPCS: 70551

== ENCOUNTER 2021-04-13 11:29 | Outpatient (CLI) | payer MEDICARE, SELFPAY ==
--- NOTE | 2021-04-13 11:38 | MR_ITS ---
WS: [email or web address] MRI CERVICAL SPINE NONCONTRAST TECHNIQUE: Sagittal T1, T2 and STIR imaging. Axial T2, gradient, and fiesta imaging. CLINICAL INFORMATION: Z98.890 - Other specified postprocedural states COMPARISON: None. FINDINGS: Straightening of the normal cervical lordosis. Cord signal is normal. Disc bulging worse at C4-C5 and C5-C6. C2-C3: Mild LEFT and no significant RIGHT foraminal narrowing. Spinal canal is patent. C3-C4: Disc osteophyte complex with endplate ridging. Moderate to severe LEFT bony foraminal narrowin g. Moderate RIGHT bony foraminal narrowing. Mild central canal stenosis. C4-C5: Disc osteophyte complex with endplate ridging. Mild to moderate central canal stenosis with sh allow central disc osteophyte protrusion. Slight indentation on cervical cord. Moderate to severe LEF T and mild to moderate RIGHT bony foraminal narrowing. Moderate facet arthropathy. C5-C6: Disc osteophyte complex with endplate ridging. Moderate central canal stenosis with slight ind entation on cervical cord. Moderate bilateral bony foraminal narrowing with moderate facet arthropath y. C6-C7: Shallow central disc protrusion. Mild central canal stenosis. Mild bilateral bony foraminal na rrowing. C7-T1: Tiny central disc protrusion. Spinal canal is patent. Mild LEFT and no significant RIGHT herminia inal narrowing. Visualized brain stem structures: Normal. Prevertebral soft tissues: Normal. MR/MR cervical spin wo con* [id number] IMPRESSION: Some images degraded by patient motion. 1. Straightening of the normal cervical lordosis. Cord signal is normal. 2. Mild to moderate central canal stenosis C3-C4, C4-C5 and C5-C6 worse at C4- C5 and C5-C6 with slight indentation on cervical cord. 3. Moderate to severe bony foraminal narrowing LEFT C3-C4, LEFT C4-C5, and LEF T C5-C6. 4. Tiny shallow central disc protrusions C6-C7 and C7-T1 without significant s willian canal narrowing.
== END 2021-04-13 11:30 | disposition home or self-care (01) ==
PROVIDERS: PCP Family Medicine; Visit Provider Specialist
DX: I61.9 Nontraumatic intracerebral hemorrhage, unspecified (principal); M50.90 Cervical disc disorder, unspecified, unspecified cervical region; Z98.890 Other specified postprocedural states
CPT/HCPCS: 72141

== ENCOUNTER → 2021-04-28 08:52 | Outpatient (BNVA) | payer MEDICARE, SELFPAY | PROVIDERS: PCP Family Medicine; Visit Provider Physician Assistant | DX: M17.0 Bilateral primary osteoarthritis of knee (principal) | CPT/HCPCS: 73560; 73565 ==

== ENCOUNTER → 2021-11-25 13:19 | Outpatient (BNVA) | payer MEDICARE, SELFPAY | PROVIDERS: PCP Family Medicine; Visit Provider Family Medicine | DX: Z00.00 Encounter for general adult medical examination without abnormal findings (principal); Z51.81 Encounter for therapeutic drug level monitoring; E11.9 Type 2 diabetes mellitus without complications; I61.9 Nontraumatic intracerebral hemorrhage, unspecified; Z13.220 Encounter for screening for lipoid disorders; R35.0 Frequency of micturition; I10 Essential (primary) hypertension | CPT/HCPCS: 80053; 80061; 83036; 84153; 85025 ==

== ENCOUNTER → 2022-05-17 10:02 | Outpatient (BNVA) | payer MEDICARE, SELFPAY | PROVIDERS: PCP Family Medicine; Visit Provider Family Medicine | DX: E11.9 Type 2 diabetes mellitus without complications (principal); R39.9 Unspecified symptoms and signs involving the genitourinary system; Z51.81 Encounter for therapeutic drug level monitoring | CPT/HCPCS: 80053; 81000; 83036; 85025; 87086 ==

== ENCOUNTER → 2022-06-07 08:43 | Outpatient (BNVA) | payer MEDICARE, SELFPAY | PROVIDERS: PCP Family Medicine; Visit Provider Podiatrist Foot & Ankle Surgery | DX: L60.0 Ingrowing nail (principal); G62.9 Polyneuropathy, unspecified; E11.42 Type 2 diabetes mellitus with diabetic polyneuropathy | CPT/HCPCS: 11730; 99204 ==

== ENCOUNTER 2022-06-09 07:51 | Outpatient (CLI) | payer MEDICARE, SELFPAY ==
--- NOTE | 2022-06-09 08:00 | US_ITS ---
WS: [email or web address] RENAL ULTRASOUND HISTORY: history of renal cancer COMPARISON: 09/26/2017 TECHNIQUE: 2-D and color Doppler imaging of the kidney submitted. Right kidney: 11.9 cm x 6.5 cm x 5.2 cm. Cortex: 1.2 cm Normal size kidney. Partial nephrectomy. No significant atrophy of the kidney. Left kidney: 12.9 cm x 5.7 cm x 5.8 cm. Cortex: 1.9 cm Normal echogenicity with no hydronephrosis or mass. Aorta: Normal. Urinary Bladder: Normal distention. US/US renal BI* [id number] IMPRESSION: 1. No significant renal atrophy and no solid mass identified. 2. By history partial RIGHT nephrectomy. There is no significant atrophy of th e RIGHT kidney. No recurrent mass identified.
== END 2022-06-09 07:52 | disposition home or self-care (01) ==
LOC: RAD 07:55
PROVIDERS: PCP Family Medicine; Visit Provider Family Medicine
DX: Z85.528 Personal history of other malignant neoplasm of kidney (principal)
CPT/HCPCS: 76770

== ENCOUNTER → 2022-06-18 08:42 | Outpatient (BNVA) | payer MEDICARE, SELFPAY | PROVIDERS: PCP Family Medicine; Visit Provider Podiatrist Foot & Ankle Surgery | DX: E11.9 Type 2 diabetes mellitus without complications (principal); M79.671 Pain in right foot | CPT/HCPCS: 99213 ==

== ENCOUNTER → 2022-08-09 08:54 | Outpatient (BNVA) | payer MEDICARE, SELFPAY | PROVIDERS: PCP Family Medicine; Visit Provider Podiatrist Foot & Ankle Surgery | DX: E11.42 Type 2 diabetes mellitus with diabetic polyneuropathy (principal); L60.0 Ingrowing nail; B35.1 Tinea unguium; M20.12 Hallux valgus (acquired), left foot; M20.11 Hallux valgus (acquired), right foot; M20.41 Other hammer toe(s) (acquired), right foot; M20.42 Other hammer toe(s) (acquired), left foot | CPT/HCPCS: 11721 ==

== ENCOUNTER → 2022-10-27 09:14 | Outpatient (BNVA) | payer MEDICARE, SELFPAY | PROVIDERS: PCP Family Medicine; Visit Provider Nurse Practitioner Family | DX: L82.1 Other seborrheic keratosis (principal); L57.0 Actinic keratosis; L72.0 Epidermal cyst; L81.4 Other melanin hyperpigmentation; L82.0 Inflamed seborrheic keratosis; Z87.891 Personal history of nicotine dependence; Z85.828 Personal history of other malignant neoplasm of skin; L57.8 Other skin changes due to chronic exposure to nonionizing radiation; L85.3 Xerosis cutis; D22.5 Melanocytic nevi of trunk | CPT/HCPCS: 17004; 17110; 99213 ==

== ENCOUNTER → 2022-11-10 08:11 | Outpatient (BNVA) | payer MEDICARE, SELFPAY | PROVIDERS: PCP Family Medicine; Visit Provider Dermatology | DX: L72.0 Epidermal cyst (principal) | CPT/HCPCS: 11403; 12032 ==

== ENCOUNTER → 2022-11-17 10:09 | Outpatient (BNVA) | payer MEDICARE, SELFPAY | PROVIDERS: PCP Family Medicine; Visit Provider Nurse Practitioner Family | DX: Z48.02 Encounter for removal of sutures (principal); Z85.828 Personal history of other malignant neoplasm of skin | CPT/HCPCS: 99213 ==

== ENCOUNTER → 2022-12-02 14:04 | Outpatient (BNVA) | payer MEDICARE, SELFPAY | PROVIDERS: PCP Family Medicine; Visit Provider Nurse Practitioner Family | DX: Z08 Encounter for follow-up examination after completed treatment for malignant neoplasm (principal); Z85.828 Personal history of other malignant neoplasm of skin; Z48.817 Encounter for surgical aftercare following surgery on the skin and subcutaneous tissue | CPT/HCPCS: 99213 ==

== ENCOUNTER → 2022-12-06 08:35 | Outpatient (BNVA) | payer MEDICARE, SELFPAY | PROVIDERS: PCP Family Medicine; Visit Provider Podiatrist Foot & Ankle Surgery | DX: B35.1 Tinea unguium; E11.42 Type 2 diabetes mellitus with diabetic polyneuropathy; M20.12 Hallux valgus (acquired), left foot; M20.11 Hallux valgus (acquired), right foot; M20.40 Other hammer toe(s) (acquired), unspecified foot; S93.601A Unspecified sprain of right foot, initial encounter; S92.354A Nondisplaced fracture of fifth metatarsal bone, right foot, initial encounter for closed fracture; W19.XXXA Unspecified fall, initial encounter | CPT/HCPCS: 11721; 73630; 99213 ==

== ENCOUNTER 2022-12-09 14:34 | Outpatient (CLI) | payer MEDICARE, SELFPAY ==
--- NOTE | 2022-12-09 15:13 | XR_ITS ---
WS: [email or web address] EXAMINATION: XR knee RT 3V* [id number] REASON FOR EXAM: Right knee pain COMPARISON: 04/28/2021 ORDER DATE: 12/09/2022 3:25 PM FINDINGS: There is no fracture or dislocation. Marked degenerative thinning of the medial joint lavinia rtment with near [id number] articulation. Calcification of the lateral meniscus. Large posterior patella spurs noted. No significant joint effusion. IMPRESSION: 1. No fracture or joint effusion. 2. Advanced narrowing of the medial joint compartment and chondrocalcinosis. Varus deformity.
--- NOTE | 2022-12-09 15:13 | XR_ITS ---
WS: [email or web address] EXAMINATION: XR hip BI m 5V wo/w pel* [id number] REASON FOR EXAM: Bilateral hip pain COMPARISON: None available. ORDER DATE: 12/09/2022 3:25 PM TECHNIQUE: Frontal internal/external rotation views of both hips were obtained. X-RAY FINDINGS: Bones/joints: Enthesophytes are present on the greater trochanter and ischial tuberosity of each hip. Small osseous bump at the femoral head neck junction unchanged from prior exam but can cause JIMMY also bilateral. No acute fracture nor subluxation. No osseous erosion nor periosteal reaction. Soft tissues: Unremarkable. IMPRESSION: 1. Bilateral osseous bump at the femoral head neck junction unchanged from prior exam but can cause JIMMY. 2. No acute osseous pathology.
--- NOTE | 2022-12-09 15:13 | XR_ITS ---
WS: [email or web address] EXAMINATION: XR knee LT 3V* [id number] REASON FOR EXAM: Knee pain left COMPARISON: 04/28/2021 ORDER DATE: 12/09/2022 3:25 PM FINDINGS: There are marginal osteophytes associated with the tibial spines, patella and other articular margins with medial and patellofemoral compartment narrowing. There is no sign of any acute fracture or disl ocation. There are numerous posterior osteochondromas and chondrocalcinosis. IMPRESSION: MEDIAL AND PATELLOFEMORAL COMPARTMENT NARROWING WITH OSTEOARTHRITIC CHANGES.
== END 2022-12-09 14:35 | disposition home or self-care (01) ==
PROVIDERS: PCP Family Medicine; Visit Provider Family Medicine
DX: M25.551 Pain in right hip (principal); M25.552 Pain in left hip; M17.12 Unilateral primary osteoarthritis, left knee; M11.261 Other chondrocalcinosis, right knee; Z51.81 Encounter for therapeutic drug level monitoring; E11.9 Type 2 diabetes mellitus without complications; I61.9 Nontraumatic intracerebral hemorrhage, unspecified; Z13.220 Encounter for screening for lipoid disorders
CPT/HCPCS: 73523; 73562; 80053; 80061; 83036; 85025

== ENCOUNTER → 2023-02-07 07:59 | Outpatient (BNVA) | payer MEDICARE, SELFPAY | PROVIDERS: PCP Family Medicine; Visit Provider Podiatrist Foot & Ankle Surgery | DX: B35.1 Tinea unguium (principal); E11.42 Type 2 diabetes mellitus with diabetic polyneuropathy; M20.10 Hallux valgus (acquired), unspecified foot; M20.40 Other hammer toe(s) (acquired), unspecified foot; M20.12 Hallux valgus (acquired), left foot; M20.11 Hallux valgus (acquired), right foot; Z79.84 Long term (current) use of oral hypoglycemic drugs | CPT/HCPCS: 11721 ==

== ENCOUNTER → 2023-03-01 09:37 | Outpatient (BNVA) | payer MEDICARE, SELFPAY | PROVIDERS: PCP Family Medicine; Visit Provider Nurse Practitioner Family | DX: L57.0 Actinic keratosis (principal); L57.8 Other skin changes due to chronic exposure to nonionizing radiation; L81.4 Other melanin hyperpigmentation; Z85.828 Personal history of other malignant neoplasm of skin | CPT/HCPCS: 17004; 99214 ==

== ENCOUNTER → 2023-05-02 08:31 | Outpatient (BNVA) | payer MEDICARE, SELFPAY | PROVIDERS: PCP Family Medicine; Visit Provider Podiatrist Foot & Ankle Surgery | DX: B35.1 Tinea unguium; E11.42 Type 2 diabetes mellitus with diabetic polyneuropathy; M20.40 Other hammer toe(s) (acquired), unspecified foot; M20.11 Hallux valgus (acquired), right foot; M20.12 Hallux valgus (acquired), left foot; Z79.84 Long term (current) use of oral hypoglycemic drugs | CPT/HCPCS: 11721; 73630; 99213 ==

== ENCOUNTER → 2023-05-09 08:14 | Outpatient (BNVA) | payer MEDICARE, SELFPAY | PROVIDERS: PCP Family Medicine; Visit Provider Nurse Practitioner Family | DX: L57.0 Actinic keratosis (principal); L57.8 Other skin changes due to chronic exposure to nonionizing radiation; L81.4 Other melanin hyperpigmentation; D23.71 Other benign neoplasm of skin of right lower limb, including hip; Z85.828 Personal history of other malignant neoplasm of skin; L91.8 Other hypertrophic disorders of the skin; L85.3 Xerosis cutis | CPT/HCPCS: 11200; 17000; 99213 ==

== ENCOUNTER 2023-07-04 09:07 | Inpatient (IN) | payer MEDICARE, SELFPAY ==
[2023-07-04] VITALS (28 sets, daily range): BP systolic 91–117; BP diastolic 60–79; PULSE 73–102; RESP 15–18; TEMP 36.4–37.1; O2SAT 75–98; BMI 32.0; BMI 33.6
--- NOTE | 2023-07-04 09:17 | XRR_ITS ---
PROCEDURE INFORMATION: Exam: XR Right Shoulder Exam date and time: 07/04/2023 11:38 AM Age: 67 years old Clinical indication: Injury or trauma; Fall; Blunt trauma (contusions or hematomas); Shoulder; Right TECHNIQUE: Imaging protocol: Radiologic exam of the right shoulder. Views: 2 or more views. COMPARISON: CR XR shoulder RT min 2V* [id number] 06/30/2020 3:00 PM FINDINGS: Bones/joints: No acute fracture or dislocation. Joint spaces are preserved. Lungs: Interstitial thickening in the right perihilar region, suggestive of mild edema. Soft tissues: Normal. XR/XR shoulder RT min 2V* [id number] IMPRESSION: No acute fracture or dislocation.
--- NOTE | 2023-07-04 09:18 | ED_ITS ---
HPI - Fall 2 General: Chief Complaint: Extremity Injury, Lower Stated Complaint: Fall/ Hip shoulder pain Time Seen by Provider: 07/04/23 09:11 Source: patient and EMS Mode of arrival: EMS Limitations: no limitations History of Present Illness: Patient is a nice 67-year-old male here via EMS for evaluation following a fall. Patient states he normally ambulates with the help of a cane as he has chronic right-sided deficits from a previous CVA. He also suffers from chronic pain on the right side. He also has chronic back pain. He has had previous back surgery. He states today he fell and landed on the right side and complains of severe right hip and pelvis pain as well as right shoulder pain. He denies striking his head or LOC. He is not complaining of any neck pain or worse back pain than his baseline. He is not on anticoagulation. States he is not able to get himself up following the fall. PMH significant for previous hemorrhagic CVA, meningioma brain tumor, history of renal cell carcinoma with partial nephrectomy, HTN, BPH, diabetes, chronic back pain/previous back surgeries. MD complaint: fall Onset (ago): hour(s) Fall from: standing Fall witnessed: yes, by family Place fall occurred: home Loss of consciousness: None Prolonged down time: no Symptoms prior to fall: none Context: tripped/slipped Location of injury - extremities: Right: shoulder Severity: severe Severity scale (1-10): 10 Associated symptoms-after fall: Reports no associated symptoms; Denies abdominal pain, chest pain, headache(s), hematuria, lightheadedness or neck pain Review of Systems 2 Eyes: Denies: change in vision, blurry vision, photophobia, eye discharge, floaters or seeing flashes ENMT: Denies: throat pain, odynophagia, ear or mastoid pain, ear discharge, nasal discharge, epistaxis or sinus pain Card: Denies: chest pain, palpitations, lightheadedness, syncope or pre- syncope Resp: Denies: dyspnea or pain on inspiration GI: Denies: abdominal pain : Denies: flank pain or hematuria Musc: Reports: back pain (chronic-at baseline) and joint pain (R hip, R shoulder); Denies: neck pain, extremity pain or joint swelling Neuro: Denies: headache(s), numbness in extremities, weakness in extremities, sensory changes or dizziness PFSH ED 2 PFSH: Medical History (Updated 07/04/23 @ 13:23 by RANDY Chisholm) Benign prostatic hyperplasia with lower urinary tract symptoms Chronic thoracic back pain History of nonmelanoma skin cancer Subcutaneous cyst Cervical disc disease Osteoarthritis of lumbar spine Lumbar stenosis with neurogenic claudication Intervertebral disc disorder with radiculopathy of lumbosacral region Thoracic degenerative disc disease Thalamic hemorrhage with stroke 12/07/2017 Acute hemorrhage involving the left thalamus and basal ganglia Allergy to iodinated contrast media Meningioma of cerebellum Presence of IVC filter Thalamic pain syndrome Accelerated essential hypertension Diabetes mellitus History of renal cell cancer History of DVT (deep vein thrombosis) Labral tear of right hip joint Surgical History (Updated 07/04/23 @ 12:38 by Hanh Reardon MD) History of colonoscopy 02/2022 Dr Werner - several sessile polyps removed, few small internal hemorrhoids. Follow up recommended in 3 years (2024). History of lumbar surgery 2020 Dr. Olga PHILLIPS - Right L3/4 laminectomy with partial facetectomy, Right revision L4/5 laminectomy with partial facetectomy, Right revision L5/S1 laminectomy with partial facetectomy 2003 Dr. Hermila Duncan [facility] [place] - Lumbar decompression 1995 [facility] - Lumbar decompression 1986 [place] - Lumbar decompression History of hernia repair History of appendectomy H/O partial nephrectomy right Hx of cholecystectomy Family History Mother Stroke Grandmother Stroke Brother Stroke Social History Smoking and tobacco/nicotine status: never used tobacco/nicotine Second hand smoke exposure: No Alcohol intake: never Substance/Drug Use: never Household members: spouse Marital status: Current occupational status: retired and disabled Physical Exam 2 Const: COMMON NORMALS: patient oriented x3, no limitations, healthy appearing, alert and well nourished GENERAL APPEARANCE: in distress (complaining of hip/pelvis pain and shoulder pain) ORIENTATION/CONSCIOUSNESS: Yes awake, Yes oriented to person, Yes oriented to place and Yes oriented to time HENMT: COMMON NORMALS: normocephalic, atraumatic and TM's normal bilaterally HEAD & SCALP: normal to inspection, normocephalic and atraumatic; no Chino's sign, no hematoma and no raccoon eyes FACE & SINUS: normal facial exam TYMPANIC MEMBRANE: TM's normal bilaterally MOUTH: other (no intraoral injuries noted) Eye: COMMON NORMALS: Equal, round and reactive pupils present and EOMs intact bilaterally GENERAL EYE: appearance normal, both eyes and all related structures and normal light reflex PUPIL: Yes Equal, round and reactive pupils present DIRECT OPHTHALMOSCOPY: Yes normal light reflex Neck/C-Spine: COMMON NORMALS: full ROM GENERAL: Yes normal visual inspection CERVICAL SPINE: Yes cervical ROM normal, No pain with cervical ROM, No Cervical spine tenderness, No step off deformity and No Paracervical muscle tenderness Chest: COMMONS NORMALS: normal inspection of the chest and normal palpation of entire chest wall Resp: COMMON NORMALS: normal respiratory effort and clear to auscultation bilaterally AUSCULTATION: clear to auscultation bilaterally Cardio: COMMON NORMALS: regular rate and regular rhythm RATE: regular rate RHYTHM: regular rhythm GI: COMMON NORMALS: Normal to inspection, nondistended, normoactive bowel sounds present, Soft to palpation, non-tender, No hepatosplenomegaly present and no masses INSPECTION: Yes normal to inspection and No abdominal wall ecchymosis AUSCULTATION: Yes normoactive bowel sounds PALPATION: Yes Soft to palpation and Yes No hepatosplenomegaly present Back/Pelvis: COMMON NORMALS: thoracic and lumbar spine normal to inspection, no thoracic nor lumbar tenderness and thoraco-lumbar ROM normal Extremity: COMMON NORMALS: normal to inspection GENERAL: Yes normal exam except as noted RIGHT UPPER EXTREMITY: Yes shoulder joint RIGHT LOWER EXTREMITY: Yes hip joint OTHER: pt is lying on his L side with his legs drawn up and will not move out of this position making it difficult to fully assess pelvis and R hip; shortening/rotation can not be assessed; I do not palpate any obvious bony abnormalities; distal pulses normal has fairly good ROM of R shoulder although states this elicits pain; distal pulses normal; chronic sensory deficits from previous CVA Neuro: IVON COMA SCALE: document GCS findings Ivon coma scale eye opening: Spontaneous [place] coma scale verbal response: Orientated [place] coma scale motor response: Obey commands Ivon coma scale total score: 15 COMMON NORMALS: patient oriented x3 SENSORIUM/ORIENTATION: Yes alert, Yes oriented to person, Yes oriented to place and Yes oriented to time SPEECH: speech normal GAIT: Yes Normal gait present Skin: COMMON NORMALS: no rashes or lesions noted GENERAL SKIN EXAM: no rashes or lesions noted TRAUMA: no lacerations or abrasions Course 2 Consultations: Consultation #1: Dr. Espinoza-recommends hospital admission and he will consult; possible OR later today Vital Signs: Vital signs: Vital Signs Temperature 97.6 F 07/04/23 13:05 Pulse Rate 82 07/04/23 13:05 Respiratory Rate 16 07/04/23 13:05 Blood Pressure 117/64 07/04/23 13:05 Pulse Oximetry 92 07/04/23 13:05 Oxygen Delivery Me thod Nasal Cannula 07/04/23 13:05 Oxygen Flow Rate 2.0 07/04/23 13:05 MDM - Fall Medical Decision Making Patient is a nice 67-year-old male here for trip and fall onto his right side complaining of right hip and right shoulder pain. He was found to have a displaced and impacted femoral neck fracture. I spoke to Dr. Espinoza who will plan on OR later today. Spoke to hospitalist Dr. Reardon who will admit. Of note- patient did require oxygen here following opiate dosing. Pain was difficult control and physical exam was limited as patient could not roll off of his left side secondary to pain. Lab Data 07/04/23 09:25 07/04/23 09:25 Radiology Impressions Shoulder X-Ray 07/04/23 09:17 IMPRESSION: No acute fracture or dislocation. Pelvis CT 07/04/23 10:58 IMPRESSION: Minimally displaced and impacted right femoral neck fracture. Chest X-Ray 07/04/23 11:48 IMPRESSION: Perihilar interstitial opacities suggestive of edema or infection. Laboratory Results WBC 6.01 10^3/uL (3.29-11.43) 07/04/23 09:25 RBC 4.63 10^6/uL (3.85-5.65) 07/04/23 09:25 Hgb 14.10 g/dL (11.27-16.99) 07/04/23 09:25 Hct 41.0 % (37-53) 07/04/23 09:25 MCV 88.6 fl (82-101) 07/04/23 09:25 MCH 30.5 pg (27-33) 07/04/23 09:25 MCHC 34.4 g/dL (30-55) 07/04/23 09:25 RDW 12.6 % (12.1-15.1) 07/04/23 09:25 Plt Count 227 10^3/cmm (157-399) 07/04/23 09:25 MPV 10.3 fL (7.4-10.4) 07/04/23 09:25 Neut % (Auto) 60.0 % 07/04/23 09:25 Lymph % (Auto) 22.8 % 07/04/23 09:25 [place] % (Auto) 10.0 % 07/04/23 09:25 Eos % (Auto) 5.3 % 07/04/23 09:25 Baso % (Auto) 1.2 % 07/04/23 09:25 Neut # (Auto) 3.61 10^3/uL (1.8-7.7) 07/04/23 09:25 Lymph # (Auto) 1.4 10^3/uL (0.8-4.8) 07/04/23 09:25 [place] # (Auto) 0.6 10^3/uL (0.2-0.9) 07/04/23 09:25 Eos # (Auto) 0.3 10^3/uL (0.0-0.8) 07/04/23 09:25 Baso # (Auto) 0.1 10^3/uL (0.0-0.1) 07/04/23 09:25 Nucleated RBC % (auto) 0 % 07/04/23 09:25 Nucleated RBCs # 0.0 /100WBC 07/04/23 09:25 Sodium 143 mmol/L (136-145) 07/04/23 09:25 Potassium 4.7 mmol/L (3.5-5.1) 07/04/23 09:25 Chloride 106 mmol/L (98-107) 07/04/23 09:25 Carbon Dioxide 26 mmol/L (22-29) 07/04/23 09:25 Anion Gap 15.7 (5-19) 07/04/23 09:25 BUN 15 mg/dL (8-23) 07/04/23 09:25 Creatinine 0.7 mg/dL (0.7-1.2) 07/04/23 09:25 GFR Calculation 112.8 mL/min (90-130) 07/04/23 09:25 Glucose 166 mg/dL (65-115) H 07/04/23 09:25 POC Glucose 151 mg/dL (70-110) H 07/04/23 13:17 Calculated Osmolality 301 mOsm/kg (285-295) H 07/04/23 09:25 Calcium 9.1 mg/dL (8.5-10.5) 07/04/23 09:25 Total Bilirubin 0.9 mg/dL (0.15-1.2) 07/04/23 09:25 AST 31 U/L (0-40) 07/04/23 09:25 ALT 51 U/L (0-41) H 07/04/23 09:25 Alkaline Phosphatase 108 U/L (40-130) 07/04/23 09:25 Total Protein 7.1 g/dL (6.6-8.7) 07/04/23 09:25 Albumin 4.4 g/dL (3.5-5.2) 07/04/23 09:25 Globulin 2.7 g/dL (1.3-4.6) 07/04/23 09:25 Urine Color Yellow (Yellow) 07/04/23 12:09 Urine Appearance Clear (CLEAR) 07/04/23 12:09 Urine pH 5 (5-7) 07/04/23 12:09 Ur Specific [place] 1.025 (1.005-1.030) 07/04/23 12:09 Urine Protein 1+ (Negative) H 07/04/23 12:09 Urine Glucose (UA) Norm (Normal) 07/04/23 12:09 Urine Ketones 1+ (Negative) H 07/04/23 12:09 Urine Blood Neg (Negative) 07/04/23 12:09 Urine Nitrate Negative (Negative) 07/04/23 12:09 Urine Bilirubin Neg (Negative) 07/04/23 12:09 Urine Urobilinogen 1 mg/dL (Negative) H 07/04/23 12:09 Ur Leukocyte Esterase Trace (Negative) H 07/04/23 12:09 Urine RBC 0-4 /hpf (0-2) H 07/04/23 12:09 Urine WBC 0-4 /hpf (0-5) H 07/04/23 12:09 Ur Squamous Epith Cells 0-4 /hpf (0-5) H 07/04/23 12:09 Amorphous Sediment Not Reportable 07/04/23 12:09 Urine Bacteria Trace /hpf (NONE) 07/04/23 12:09 Urine Mucus 2+ /hpf 07/04/23 12:09 All radiology interpretation(s) finalized by discharge Discharge Plan Discharge Patient Disposition: Admitted As Inpatient Clinical Impression: Closed displaced fracture of right femoral neck Condition: Stable Coding Level of Care Code ED Telecommunicator Supervisor for Kathy Quinteros
[2023-07-04] MEDS: HYDROmorphone 1 mg/mL INJ 1 mL IVP ×2 (09:32→10:59)
[2023-07-04] MEDS: ondansetron 2 mg/ML SDV 2 mL 4 MG IVP (09:32)
[2023-07-04 09:58] LABS: Basophils # 0.1 10^3/uL (0.0-0.1); Basophils % 1.2 %; Eosinophils # 0.3 10^3/uL (0.0-0.8); Eosinophils % 5.3 %; Lymphocytes # 1.4 10^3/uL (0.8-4.8); Lymphocytes % 22.8 %; Mean Corpuscular HGB Conc 34.4 g/dL (30-55); Mean Corpuscular Hemoglobin 30.5 pg (27-33); Mean Corpuscular Volume 88.6 fl (82-101); Mean Platelet Volume 10.3 fL (7.4-10.4); Monocytes # 0.6 10^3/uL (0.2-0.9); Neutrophils # 3.61 10^3/uL (1.8-7.7); Nucleated Red Blood Cells % 0 %; Platelet Count 227 10^3/cmm (157-399); Red Blood Count 4.63 10^6/uL (3.85-5.65); Red Cell Distribution Width 12.6 % (12.1-15.1); White Blood Count 6.01 10^3/uL (3.29-11.43)
[2023-07-04 10:00] LABS: Alanine Aminotransferase 51 U/L (0-41); Albumin Level 4.4 g/dL (3.5-5.2); Alkaline Phosphatase 108 U/L (40-130); Anion Gap 15.7 (5-19); Aspartate Amino Transferase 31 U/L (0-40); Blood Urea Nitrogen 15 mg/dL (8-23); Calcium 9.1 mg/dL (8.5-10.5); Carbon Dioxide 26 mmol/L (22-29); Chloride 106 mmol/L (98-107); Globulin 2.7 g/dL (1.3-4.6); Glomerular Filtration Rate 112.8 mL/min (90-130); Glucose 166 mg/dL (65-115); Osmolality Calculated 301 mOsm/kg (285-295); Potassium 4.7 mmol/L (3.5-5.1); Sodium 143 mmol/L (136-145); Total Bilirubin 0.9 mg/dL (0.15-1.2); Total Protein 7.1 g/dL (6.6-8.7)
--- NOTE | 2023-07-04 10:58 | CTR_ITS ---
PROCEDURE INFORMATION: Exam: CT Pelvis Without Contrast; Skeletal Exam date and time: 07/04/2023 11:35 AM Age: 67 years old Clinical indication: Injury or trauma; Fall; Blunt trauma (contusions or hematomas); Bilateral; Hip and pelvic region TECHNIQUE: Imaging protocol: Computed tomography of the pelvis without contrast. Exam focused on the skeleton. Radiation optimization: All CT scans at this facility use at least one of these dose optimization techniques: automated exposure control; mA and/or kV adjustment per patient size (includes targeted exams where dose is matched to clinical indication); or iterative reconstruction. COMPARISON: CR XR hip BI m 5V wo/w pel* [id number] 12/09/2022 3:26 PM RADIATION DOSE METRICS: Total DLP (mGy-cm): 1166.37 FINDINGS: Bones/joints: Minimally displaced and impacted right femoral neck fracture. No additional fractures are seen. Soft tissues: Unremarkable. CT/CT bony pelvis [id number] IMPRESSION: Minimally displaced and impacted right femoral neck fracture.
--- NOTE | 2023-07-04 11:09 | PC.PHAR ---
pt and pts verified medications-notes are made in the pharmacy comments
--- NOTE | 2023-07-04 11:39 | PC.NURSE ---
Cut patients jeans off so that he could have his CT done, patient stated that he could not move for us to remove his jeans without cutting them.
--- NOTE | 2023-07-04 11:48 | XRR_ITS ---
PROCEDURE INFORMATION: Exam: XR Chest Exam date and time: 07/04/2023 11:57 AM Age: 67 years old Clinical indication: Injury or trauma; Fall; Blunt trauma (contusions or hematomas); Additional info: Hip fracture TECHNIQUE: Imaging protocol: Radiologic exam of the chest. Views: 1 view. COMPARISON: CT chest w con* [id number] 12/24/2016 10:43 AM FINDINGS: Lungs: Low lung volumes with bronchovascular crowding. Bilateral perihilar opacities and interstitial thickening. No focal consolidation. Pleural spaces: No sizable pleural effusion or pneumothorax. Heart/Mediastinum: No cardiomegaly. Bones/joints: Unremarkable. XR/XR chest 1V portable [id number] IMPRESSION: Perihilar interstitial opacities suggestive of edema or infection.
--- NOTE | 2023-07-04 11:50 | ECG_ITS ---
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 Measurements Intervals [place] Rate: 75 P: 36 MA: 205 QRS: 48 QRSD: 85 T: 55 QT: 338 QTc: 380 Interpretive Statements SINUS RHYTHM LOW QRS VOLTAGE IN PRECORDIAL LEADS [QRS DEFLECTION < 1.0 mV IN CHEST LEADS] Compared to ECG 11/12/2020 08:27:59 Low QRS voltage now present First degree AV block no longer present Electronically Signed On 07-04-2023 22:53:43 CDT by Vero Oswald M.D. [email or web address]
--- NOTE | 2023-07-04 12:31 | P.HP_ITS ---
Providers/Chief Complaint 2 Admitting Physician: Hanh Reardon MD Primary Care Provider: Virgilio Devries MD Chief Complaint: Fall/ Hip shoulder pain History of Present Illness Kirby Boudreaux is a 67 year old male who presented to the emergency room after a fall at home. He was getting ready to go to an appointment at Dr. Martinez's office, walking with his cane when his right foot just did not move forward as he wanted it to and he tripped and fell. He landed on his right side and was complaining of severe pain in the right hip. The right-sided weakness is residual from a hemorrhagic stroke in 2018. No report of any new neurological symptoms today. No reports of any chest pain or difficulty breathing or other prodromal symptoms before the fall. He was brought in by EMS with complaints of pain in the right hip and right shoulder area. He was ultimately found to have a right femoral neck fracture. Orthopedics has been consulted and plan is for surgery today. Last oral intake was some coffee this morning. He did take his carvedilol this morning. He did not take his losartan. He did not take his aspirin today. He is not on any blood thinners. He has had previous anesthesia for multiple back surgeries in the past without reported difficulty. At baseline patient walks with a walker. He can go up stairs but does not generally go up to many. He can go out to his mailbox and get the mail and denies having to stop due to difficulty breathing or chest pain. No known history of coronary artery disease. He does have a history of hypertension treated with several medications. He has had prior hemorrhagic stroke in 2018. He has a history of a history of meningioma associated with seizures in the past. He has not had a seizure since before his stroke. He is on chronic Keppra. He also has a history of renal cell carcinoma and has had a partial right nephrectomy. Renal function is normal currently. He has prostatic hypertrophy for which he takes Flomax. He has nocturia x 3 and daytime urinary frequency which has been the norm for him for several years. No reports of any painful urination or blood in the urine. He has not had any cough, shortness of breath, wheezing. He has had a bit of a runny nose which she associates with allergies. He has had 2 family members she has been in contact with who have been told that they have COVID in the eyes , primarily conjunctivitis. His is also had some mild respiratory symptoms. I do not believe either were formally tested. Mr. Boudreaux denies any new or increased respiratory symptoms lately though was noted in the emergency room to require oxygen after getting pain medication. Chest x-ray was taken but interpretation limited by patient remaining essentially in the left lateral decubitus sort of position due to pain in his right hip. Interpretation was of pulmonary edema/infiltrates but again no report of any new respiratory symptoms to speak of. He does report nocturia and some urinary frequency at times but these are not new. Plan is for surgical intervention today. Review of Systems 2 General: Reports: Other (ROS as per HPI or as otherwise noted here) Const: Denies: fever(s) ENMT: Reports: nasal discharge Card: Denies: chest pain or edema Resp: Denies: dyspnea, productive cough, non-productive cough, wheezing or chest congestion GI: Denies: change in stool character (usual pattern every other day, last yesterday) : Reports: urinary frequency (not increased from recent baseline) and nocturia (x 3, no increase recently, present for several years, on flomax); Denies: difficulty urinating or dysuria Musc: Reports: extremity pain (right hip and right shoulder (right shoulder not bad per Mr Boudreaux)) Neuro: Reports: weakness in extremities (right weakness at baseline); Denies: seizure-like activity (none in years) Endo: Reports: other (no insulin or shots for diabetes) Mathew/Lymph: Denies: easy bruising or easy bleeding All/Imm: Reports: seasonal rhinorrhea Medications/Allergies Home Medications Medication Instructions Recorded Confirmed Last Taken Type aspirin 81 mg tablet,delayed 81 mg PO DAILY@12 04/25/19 07/04/23 07/03/23 History release (Adult Low Dose Aspirin) duloxetine 30 mg capsule,delayed 30 mg PO BID #180 caps 12/23/22 07/04/23 07/04/23 Rx release amlodipine 10 mg tablet 10 mg PO QAM 07/04/23 07/04/23 07/04/23 05:30 History atorvastatin 10 mg tablet 10 mg PO BEDTIME 07/04/23 07/04/23 07/03/23 History carvedilol 12.5 mg tablet 12.5 mg PO BID 07/04/23 07/04/23 07/04/23 History cholecalciferol (vitamin D3) 25 25 mcg PO QAM 07/04/23 07/04/23 Unknown History mcg (1,000 unit) capsule (Vitamin D3) cyclobenzaprine 10 mg tablet 10 mg PO BEDTIME muscle spasm 07/04/23 07/04/23 07/03/23 History gabapentin 600 mg tablet 600 mg PO Q8H 07/04/23 07/04/23 07/04/23 History hydrocodone 5 mg-acetaminophen 325 1 tab PO BEDTIME Pain 07/04/23 07/04/23 Unknown History mg tablet levetiracetam 500 mg tablet 500 mg PO BID 07/04/23 07/04/23 07/04/23 History losartan 100 mg tablet 100 mg PO DAILY@12 07/04/23 07/04/23 07/03/23 History metformin 500 mg tablet 500 mg PO QPM 07/04/23 07/04/23 07/03/23 History tamsulosin 0.4 mg capsule 0.8 mg PO BEDTIME 07/04/23 07/04/23 07/03/23 History triamcinolone acetonide 0.1 % 1 applic topical DAILY PRN unknown 07/04/23 07/04/23 Unknown History topical cream Allergies Allergy/AdvReac Type Severity Reaction Status Date / Time Iodinated Contrast Media Allergy anaphylaxis Verified 07/04/23 10:29 shrimp Allergy anaphylaxix Verified 07/04/23 10:29 PFSH Acute 2 PFSH: Medical History (Updated 07/04/23 @ 14:24 by Hanh Reardon MD) Benign prostatic hyperplasia with lower urinary tract symptoms Chronic thoracic back pain History of nonmelanoma skin cancer Subcutaneous cyst Cervical disc disease Osteoarthritis of lumbar spine Lumbar stenosis with neurogenic claudication Intervertebral disc disorder with radiculopathy of lumbosacral region Thoracic degenerative disc disease Thalamic hemorrhage with stroke 12/07/2017 Acute hemorrhage involving the left thalamus and basal ganglia Allergy to iodinated contrast media 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 Follow up recommended in 3 years (2024). History of lumbar surgery 2020 Dr. Olga PHILLIPS - Right L3/4 laminectomy with partial facetectomy, Right revision L4/5 laminectomy with partial facetectomy, Right revision L5/S1 laminectomy with partial facetectomy 2003 Dr. Hermila Duncan [facility] - Lumbar decompression 1995 [facility] - Lumbar decompression 1986 [place] - Lumbar decompression History of hernia repair History of appendectomy H/O partial nephrectomy right Hx of cholecystectomy Family History Mother Stroke Grandmother Stroke Brother Stroke Social History Smoking and tobacco/nicotine status: never used tobacco/nicotine Second hand smoke exposure: No Alcohol intake: never Substance/Drug Use: never Household members: spouse Marital status: Current occupational status: retired and disabled Vitals/I&O/Wt Last Vital Signs Temp 98.2 F 07/04/23 09:09 Pulse 79 07/04/23 11:14 Resp 18 07/04/23 09:09 BP 112/69 07/04/23 09:38 Pulse Ox 93 07/04/23 11:14 O2 Del Method Nasal Cannula 07/04/23 11:14 Physical Exam 2 Narrative: Patient is awake and alert. Answers questions appropriately. He is in pain with any small movement. Pupils are small and sluggish and conjunctiva are slightly injected. Extraocular movements are intact. Oropharynx with dry mucous membranes. Neck is large but supple. Breath sounds are decreased on the left side though clear in the apices. No rales or rhonchi appreciated. Improved aeration on the right which is also clear. No wheezing noted. No accessory muscle use noted. Cardiovascular exam reveals a regular rhythm. Unable to adequately assess JVD due to positioning. No murmurs noted. Abdomen is soft, rotund, positive bowel sounds. SCDs are in place. No pitting edema noted to the ankles. Patient is lying on his left side. Right lower extremity appears shortened but difficult to fully discern. Moves all of his toes. Pulses are palpable at both feet. Right-sided deficits are difficult to evaluate with current positioning and degree of pain due to acute fracture. Speech is clear and face is grossly symmetric. De Luna catheter is in place with yellow urine. Urinary Catheter Management: De Luna Latex Free: Cath Placed During This Visit: yes Urinary Catheter Date of Insertion: 07/04/23 Data 07/04/23 09:25 07/04/23 09:25 Other Labs: Radiology Impressions Shoulder X-Ray 07/04/23 09:17 IMPRESSION: No acute fracture or dislocation. Pelvis CT 07/04/23 10:58 IMPRESSION: Minimally displaced and impacted right femoral neck fracture. Chest X-Ray 07/04/23 11:48 IMPRESSION: Perihilar interstitial opacities suggestive of edema or infection. Laboratory Results WBC 6.01 10^3/uL (3.29-11.43) 07/04/23 09:25 RBC 4.63 10^6/uL (3.85-5.65) 07/04/23 09:25 Hgb 14.10 g/dL (11.27-16.99) 07/04/23 09:25 Hct 41.0 % (37-53) 07/04/23 09:25 MCV 88.6 fl (82-101) 07/04/23 09:25 MCH 30.5 pg (27-33) 07/04/23 09:25 MCHC 34.4 g/dL (30-55) 07/04/23 09:25 RDW 12.6 % (12.1-15.1) 07/04/23 09:25 Plt Count 227 10^3/cmm (157-399) 07/04/23 09:25 MPV 10.3 fL (7.4-10.4) 07/04/23 09:25 Neut % (Auto) 60.0 % 07/04/23 09:25 Lymph % (Auto) 22.8 % 07/04/23 09:25 [place] % (Auto) 10.0 % 07/04/23 09:25 Eos % (Auto) 5.3 % 07/04/23 09:25 Baso % (Auto) 1.2 % 07/04/23 09:25 Neut # (Auto) 3.61 10^3/uL (1.8-7.7) 07/04/23 09:25 Lymph # (Auto) 1.4 10^3/uL (0.8-4.8) 07/04/23 09:25 [place] # (Auto) 0.6 10^3/uL (0.2-0.9) 07/04/23 09:25 Eos # (Auto) 0.3 10^3/uL (0.0-0.8) 07/04/23 09:25 Baso # (Auto) 0.1 10^3/uL (0.0-0.1) 07/04/23 09:25 Nucleated RBC % (auto) 0 % 07/04/23 09:25 Nucleated RBCs # 0.0 /100WBC 07/04/23 09:25 Sodium 143 mmol/L (136-145) 07/04/23 09:25 Potassium 4.7 mmol/L (3.5-5.1) 07/04/23 09:25 Chloride 106 mmol/L (98-107) 07/04/23 09:25 Carbon Dioxide 26 mmol/L (22-29) 07/04/23 09:25 Anion Gap 15.7 (5-19) 07/04/23 09:25 BUN 15 mg/dL (8-23) 07/04/23 09:25 Creatinine 0.7 mg/dL (0.7-1.2) 07/04/23 09:25 GFR Calculation 112.8 mL/min (90-130) 07/04/23 09:25 Glucose 166 mg/dL (65-115) H 07/04/23 09:25 Calculated Osmolality 301 mOsm/kg (285-295) H 07/04/23 09:25 Calcium 9.1 mg/dL (8.5-10.5) 07/04/23 09:25 Total Bilirubin 0.9 mg/dL (0.15-1.2) 07/04/23 09:25 AST 31 U/L (0-40) 07/04/23 09:25 ALT 51 U/L (0-41) H 07/04/23 09:25 Alkaline Phosphatase 108 U/L (40-130) 07/04/23 09:25 Total Protein 7.1 g/dL (6.6-8.7) 07/04/23 09:25 Albumin 4.4 g/dL (3.5-5.2) 07/04/23 09:25 Globulin 2.7 g/dL (1.3-4.6) 07/04/23 09:25 Urine Color Yellow (Yellow) 07/04/23 12:09 Urine Appearance Clear (CLEAR) 07/04/23 12:09 Urine pH 5 (5-7) 07/04/23 12:09 Ur Specific Lindsay 1.025 (1.005-1.030) 07/04/23 12:09 Urine Protein 1+ (Negative) H 07/04/23 12:09 Urine Glucose (UA) Norm (Normal) 07/04/23 12:09 Urine Ketones 1+ (Negative) H 07/04/23 12:09 Urine Blood Neg (Negative) 07/04/23 12:09 Urine Nitrate Negative (Negative) 07/04/23 12:09 Urine Bilirubin Neg (Negative) 07/04/23 12:09 Urine Urobilinogen 1 mg/dL (Negative) H 07/04/23 12:09 Ur Leukocyte Esterase Trace (Negative) H 07/04/23 12:09 Urine RBC 0-4 /hpf (0-2) H 07/04/23 12:09 Urine WBC 0-4 /hpf (0-5) H 07/04/23 12:09 Ur Squamous Epith Cells 0-4 /hpf (0-5) H 07/04/23 12:09 Amorphous Sediment Not Reportable 07/04/23 12:09 Urine Bacteria Trace /hpf (NONE) 07/04/23 12:09 Urine Mucus 2+ /hpf 07/04/23 12:09 A&P Assessment and plan (1) Fall: At home, same level, tripped over his right foot while walking. Right-sided motor deficits from prior stroke contributing factor. Qualifiers: Encounter type: initial encounter Qualified Code(s): W19.XXXA - Unspecified fall, initial encounter (2) Closed displaced fracture of right femoral neck: Initial encounter. Going to the OR today for surgical repair by Dr. Espinoza. Personally discussed with orthopedics and anesthesia patient's pertinent medical history as described in this note. (3) Abnormal chest xray: Suboptimal positioning, no reported respiratory symptoms prior to ED visit. Had some hypoxemia in ED after narcotic pain medication and currently on oxygen at 2L BNC. Should be noted that patient has had exposure to viral illness that was described by his /[id number] as COVID in the eyes . He has had some runny nose lately but no other respiratory symptoms or indications of infection described. No known history of CHF. (4) Hypertension: Chronically on carvedilol, amlodipine, losartan. After pain medication administered in the emergency room patient's blood pressures are within normal range. Records indicate a history of accelerated hypertension in the past. Qualifiers: Hypertension type: primary hypertension Qualified Code(s): I10 - Essential (primary) hypertension (5) Diabetes mellitus type 2, controlled: Chronically on metformin and gabapentin, also on statin and aspirin Qualifiers: Diabetes mellitus complication detail: with polyneuropathy Diabetes mellitus complication status: with neurologic complications Diabetes mellitus buttermaker insulin use: without buttermaker use Qualified Code(s): E11.42 - Type 2 diabetes mellitus with diabetic polyneuropathy (6) History of stroke: Hemorrhagic stroke in 2018 with residual right-sided motor weakness, uses can for walking (7) Personal history of renal cancer: With history of partial right nephrectomy, currently stable renal fucntion (8) Allergy to iodinated contrast media: Noted in chart (9) Presence of IVC filter: Due to history of prior DVT (10) Benign prostatic hyperplasia with lower urinary tract symptoms: Chronically on flomax (11) History of lumbar surgery: No known history of anesthesia problems, has chronic associated pain and osteoarthritis in multiple joints for which he is chronically on hydrocodone and flexeril as well as duloxetine, vitamin D (12) 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 Espinoza Pain control as needed postoperatively Chronically on gabapentin and duloxetine along with as needed Flexeril which should be helpful adjunct of treatments Chronically takes approximately 1 hydrocodone a day at bedtime though anticipate holding this while he is on alternative pain management in the immediate postoperative period Will want to maximize nonopioid pain management Will recheck LFTs in the morning Low volume IV fluids tonight until taking better oral intake postoperatively Incentive spirometer and as needed breathing treatments Oxygen therapy as needed Get baseline BNP Monitor respiratory status for need to adjust respiratory management Will send COVID PCR testing given report from family Recheck chest x-ray once able to be supine Currently recommend usual perioperative antibiotic regimen Continue patient's usual home dose of carvedilol along with half-doses of losartan and amlodipine initially with plan to titrate to usual home dose as needed postoperatively. Parameters for holding antihypertensives written. Hold patient's home metformin currently, will add low-dose sliding scale insulin and Accu-Cheks Continue home atorvastatin Neurochecks postoperatively Recheck renal function in the morning Aware of IVC filter, plan for SCDs and likely increased dose and aspirin for pharmacological prophylaxis versus Lovenox after discussion with orthopedics Continue home Flomax Continue home Keppra Supportive care otherwise VTE prophylaxis: Postoperatively recommend SCDs. Pharmacologically can increase to whole aspirin for DVT prophylaxis (or consider lovenox with monitoring of neurological status. Have discussed risk of bleeding and recurrent DVT with patient and family. He does have a IVC filter in place GI Prophylaxis: PPI Antibiotics: Usual postoperative antibiotics Pending studies: BNP and COVID testing Telemetry: Not currently indicated though will monitor for changes De Luna: Currently in place with plan to remove after surgery, known to have BPH Line(s): peripheral IVs Disposition plan: Reviewed potential disposition options including skilled rehabilitation, home care and general recovery process. Prefers [facility]. Code Status: Full Code Supportive care otherwise Findings, concerns and plans were discussed with patient and family present and they all were given an opportunity to ask questions Attestations 2 Medical Necessity Statement*: Anticipated stay greater than two midnights in this gentleman who sustained a fall at home and was found to have a right femoral neck fracture. He will undergo surgical repair today. Chronic conditions and recent exposures increase risk of perioperative comorbidities. Benefits of early surgery and mobilization reviewed. Diagnoses Fall, initial encounter W19.XXXA Encounter type: initial encounter Closed displaced fracture of right femoral neck S72.001A Abnormal chest xray R93.89 Primary hypertension I10 Hypertension type: primary hypertension Controlled type 2 diabetes mellitus with diabetic polyneuropathy, without long- term current use of insulin E11.42 Diabetes mellitus complication detail: with polyneuropathy Diabetes mellitus complication status: with neurologic complications Diabetes mellitus residential insulin use: without buttermaker use History of stroke Z86.73 Personal history of renal cancer Z85.528 Allergy to iodinated contrast media Z91.041 Presence of IVC filter Z95.828 Benign prostatic hyperplasia with lower urinary tract symptoms N40.1 History of lumbar surgery Z98.890 Meningioma of cerebellum D32.0 Perioperative Risk Evaluation Type of surgery Surgical procedures: Orthopedic repair of femoral neck fracture Procedure risk: elevated risk procedure Status of surgery Priority: urgent (neccessary within 6-24 hours) Sepsis risk Sepsis risk: reviewed and none apply Infection criteria present evidence: Does have abnormal chest xray, limited due to positioning, but no pre-visit repiratory symptoms Also with abnormal UA without urinary symptoms Infection criteria present: None SIRS criteria present: None Organ dysfunction criteria present: None Sepsis screen: No Definite Risk Risk factors Risk factors: reviewed and none apply Medical history Medical history: reviewed and none apply Cardiac Studies: 2 No Data to Display Implantable Devices 2 [employer]ist Implant Date Expiration Date Gelatin haemostatic agent 1 [employer] A/S 11/12/20 04/06/22 Functional capacity Exercise tolerance: 4-10 METS Comment on Functional Capacity: Uses a cane at baseline, due to right motor weakness and limitations from prior hemorrhagic stroke and diabetic periopheral neuropathy Medications High priority meds: KITTY inhibitors/ARBs (losartan), beta-blockers (carvedilol), statins (atorvastatin) and antiplatelets (aspirin) Assessment Risk of cardiovascular perioperative events: Elevated At this time, there is an elevated risk for cardiovascular perioperative events associated with this urgent elevated risk procedure (Orthopedic repair of femoral neck fracture). Risk of noncardiovascular perioperative events: Low At this time, there is a low risk for noncardiovascular perioperative events associated with this urgent elevated risk procedure (Orthopedic repair of femoral neck fracture). However patient has potential recent exposure to viral illness along with difficult to interpret chest x-ray and current oxygen need after receiving narcotics increasing risk of pulmonary issues postoperatively. He has a history of hemorrhagic stroke in 2018. He is chronically on aspirin but no anticoagulation or other antiplatelet therapy. He has had prior partial right nephrectomy due to renal cell carcinoma but renal function currently stable at baseline. Known iodine contrast allergy. In addition he has abnormal urinalysis without any reported urinary symptoms. Have reviewed risk of heart attack, stroke, blood clot, bleeding including stroke, potential need for blood, infection, respiratory issues with patient and his family present to include and [id number]. Also discussed benefits of early surgery immobilization on long-term outcomes. At this time medically optimized for surgery today. All are in agreement with proceeding to surgery as planned by orthopedics and all were given an opportunity to ask questions. Will monitor ivett and postoperatively for issues which may arise and require additional care beyond that described here. Recommendations Patient medically optimized for surgery: Yes Interventions which may reduce cardiovascular risk: No Interventions which may reduce noncardiovascular risk: Yes Interventions that reduce non cardio risk: incentive spirometry and other (monitor respiratory status, check baseline BNP, o2 as needed, usual perioperative antibiotics, DVT prophylaxis with monitoring of neuro status postop) Ivett-op med management: Currently, there are multiple high priority active medications: KITTY inhibitors/ARBs, beta-blockers, statins, antiplatelets. The recommended actions are: Patient took his carvedilol today. He did not take his losartan. Anticipate resumption of all medications with parameters for blood pressure medications written in postoperative transfer orders. Additional recommendations for postoperative medical care: In terms of postoperative DVT prophylaxis, can give aspirin therapy if adequate from orthopedic standpoint or low molecular weight heparin but will need to monitor neurostatus.
[2023-07-04 12:35] LABS: Add Urine Microscopic? YES; Bilirubin Urine Neg (Negative); Blood Urine Neg (Negative); Glucose Urine UA Norm (Normal); Ketones Urine 1+ (Negative); Leukocyte Esterase Urine Trace (Negative); Nitrate Urine Negative (Negative); Protein Urine 1+ (Negative); Specific Gravity, Urine 1.025 (1.005-1.030); Urine Appearance Clear (CLEAR); Urine Color Yellow (Yellow); Urobilinogen Urine 1 mg/dL (Negative); pH Urine 5 (5-7)
[2023-07-04 12:36] LABS: Bacteria Urine TRACE /hpf; Mucus Urine 2+ /hpf; RBC Urine 0-4 /hpf (0-2); Squamous Epithelial Cell Urine 0-4 /hpf (0-5); WBC Urine 0-4 /hpf (0-5)
[2023-07-04 12:37] LABS: Add Urine Culture? No
[2023-07-04 13:20] LABS: Glucose Point of Care 151 mg/dL (70-110)
--- NOTE | 2023-07-04 13:26 | P.CONIM_ITS ---
Providers/Reason For Consult 2 Consulting Physician/Specialty*: Hospitalist Reason for Consult*: Right femoral neck fracture Attending Physician: Terence Espinoza DO Primary Care Provider: Virgilio Devries MD History of Present Illness History of Present Illness Kirby Boudreaux is a 67 year old male Patient states he normally ambulates with the help of a cane as he has chronic right-sided deficits from a previous CVA. He also suffers from chronic pain on the right side. He also has chronic back pain. He has had previous back surgery. He states today he fell and landed on the right side and complains of severe right hip and pelvis pain as well as right shoulder pain. Review of Systems 2 Eyes: Denies: change in vision, blurry vision, photophobia, eye discharge, floaters or seeing flashes ENMT: Denies: throat pain, odynophagia, ear or mastoid pain, ear discharge, nasal discharge, epistaxis or sinus pain Card: Denies: chest pain, palpitations, lightheadedness, syncope or pre- syncope Resp: Denies: dyspnea or pain on inspiration GI: Denies: abdominal pain : Denies: flank pain or hematuria Musc: Reports: back pain (chronic-at baseline) and joint pain (R hip, R shoulder); Denies: neck pain, extremity pain or joint swelling Neuro: Denies: headache(s), numbness in extremities, weakness in extremities, sensory changes or dizziness Medications/Allergies Home Medications Medication Instructions Recorded Confirmed Last Taken Type aspirin 81 mg tablet,delayed 81 mg PO DAILY@12 04/25/19 07/04/23 07/03/23 History release (Adult Low Dose Aspirin) duloxetine 30 mg capsule,delayed 30 mg PO BID #180 caps 12/23/22 07/04/23 07/04/23 Rx release amlodipine 10 mg tablet 10 mg PO QAM 07/04/23 07/04/23 07/04/23 05:30 History atorvastatin 10 mg tablet 10 mg PO BEDTIME 07/04/23 07/04/23 07/03/23 History carvedilol 12.5 mg tablet 12.5 mg PO BID 07/04/23 07/04/23 07/04/23 History cholecalciferol (vitamin D3) 25 25 mcg PO QAM 07/04/23 07/04/23 Unknown History mcg (1,000 unit) capsule (Vitamin D3) cyclobenzaprine 10 mg tablet 10 mg PO BEDTIME muscle spasm 07/04/23 07/04/23 07/03/23 History gabapentin 600 mg tablet 600 mg PO Q8H 07/04/23 07/04/23 07/04/23 History hydrocodone 5 mg-acetaminophen 325 1 tab PO BEDTIME Pain 07/04/23 07/04/23 Unknown History mg tablet levetiracetam 500 mg tablet 500 mg PO BID 07/04/23 07/04/23 07/04/23 History losartan 100 mg tablet 100 mg PO DAILY@12 07/04/23 07/04/23 07/03/23 History metformin 500 mg tablet 500 mg PO QPM 07/04/23 07/04/23 07/03/23 History tamsulosin 0.4 mg capsule 0.8 mg PO BEDTIME 07/04/23 07/04/23 07/03/23 History triamcinolone acetonide 0.1 % 1 applic topical DAILY PRN unknown 07/04/23 07/04/23 Unknown History topical cream Allergies Allergy/AdvReac Type Severity Reaction Status Date / Time Iodinated Contrast Media Allergy anaphylaxis Verified 07/04/23 10:29 shrimp Allergy anaphylaxix Verified 07/04/23 10:29 PFSH Acute 2 PFSH: Medical History (Updated 07/04/23 @ 13:23 by RANDY Chisholm) Benign prostatic hyperplasia with lower urinary tract symptoms Chronic thoracic back pain History of nonmelanoma skin cancer Subcutaneous cyst Cervical disc disease Osteoarthritis of lumbar spine Lumbar stenosis with neurogenic claudication Intervertebral disc disorder with radiculopathy of lumbosacral region Thoracic degenerative disc disease Thalamic hemorrhage with stroke 12/07/2017 Acute hemorrhage involving the left thalamus and basal ganglia Allergy to iodinated contrast media Meningioma of cerebellum Presence of IVC filter Thalamic pain syndrome Accelerated essential hypertension Diabetes mellitus History of renal cell cancer History of DVT (deep vein thrombosis) Labral tear of right hip joint Surgical History (Updated 07/04/23 @ 12:38 by Hanh Reardon MD) History of colonoscopy 02/2022 Dr Werner - several sessile polyps removed, few small internal hemorrhoids. Follow up recommended in 3 years (2024). History of lumbar surgery 2020 Dr. Olga PHILLIPS - Right L3/4 laminectomy with partial facetectomy, Right revision L4/5 laminectomy with partial facetectomy, Right revision L5/S1 laminectomy with partial facetectomy 2003 Dr. Hermila Duncan [facility] - Lumbar decompression 1995 [facility] - Lumbar decompression 1986 [place] - Lumbar decompression History of hernia repair History of appendectomy H/O partial nephrectomy right Hx of cholecystectomy Family History Mother Stroke Grandmother Stroke Brother Stroke Social History Smoking and tobacco/nicotine status: never used tobacco/nicotine Second hand smoke exposure: No Alcohol intake: never Substance/Drug Use: never Household members: spouse Marital status: Current occupational status: retired and disabled Vitals/I&O/Wt Last Vital Signs Temp 97.6 F 07/04/23 13:05 Pulse 82 07/04/23 13:05 Resp 16 07/04/23 13:05 BP 117/64 07/04/23 13:05 Pulse Ox 92 07/04/23 13:05 O2 Del Method Nasal Cannula 07/04/23 13:05 O2 Flow Rate 2.0 07/04/23 13:05 Physical Exam 2 Narrative: Patient laying on gurney with right side up. In severe pain. Patient had stroke on the side of his body. Urinary Catheter Management: De Luna Latex Free: Cath Placed During This Visit: yes Urinary Catheter Date of Insertion: 07/04/23 Data 07/04/23 09:25 07/04/23 09:25 A&P Assessment and plan (1) Fracture of femoral neck, right: Right hip hemiarthroplasty planned for today Qualifiers: Encounter type: initial encounter Fracture type: closed Qualified Code(s): S72.001A - Fracture of unspecified part of neck of right femur, initial encounter for closed fracture Coding Level of Care Code Acute Code for Chg Fwd Diagnoses Closed fracture of neck of right femur, initial encounter S72.001A Encounter type: initial encounter Fracture type: closed
[2023-07-04 13:29] LABS: NT Pro B Type Natriuretic Pept < 36 pg/mL (0-125)
--- NOTE | 2023-07-04 13:41 | P.ANESASSM_ITS ---
Pre-Anesthetic Assessment Height/Weight: Height 1.93 m Temp Pulse Resp BP Pulse Ox O2 Del Method O2 Flow Rate 97.6 F 82 16 117/64 92 Nasal Cannula 2.0 07/04/23 13:05 07/04/23 13:05 07/04/23 13:05 07/04/23 13:05 07/04/23 13:05 07/04/23 13:05 07/04/23 13:05 Preop Diagnosis: femoral neck fx rt Operation Date: 07/04/23 13:00 Proposed Procedures p Hemiarthroplasty Hip(Right) - Terence Martínez Caron, DO Was Beta Danya taken within 24 hours: Yes Was Clonidine taken within 24 hours: N/A Last intake: Intake Last Liquid Date 07/04/23 Last Liquid Time 06:30 Last Solid Date 07/04/23 Last Solid Time 18:00 Social No alcohol and No tobacco Exam alert, oriented x 3, clear to auscultation bilaterally and regular rate & rhythm Airway Submandibular: within normal limits Cervical ROM: Other (limited) Mallampati: Class III Pulmonary Exertional Dyspnea and Shortness of Breath CV/HEM Arrythmia, Congestive Heart Failure, Hypertension and Paroxysmal Nocturnal Dyspnea Renal Cell CA s/p partial nephrectomy Metabolic Diabetes Mellitus and Morbid Obesity [facility] Lower Back Pain, Osteoarthritis/DJD and Weakness Neuropsych Cerebrovascular Accident (Residual right sided weakness) Anesthetic Plan ASA status: 4E Anesthesia: General Medications/Allergies Home Medications Medication Instructions Recorded Confirmed Last Taken Type aspirin 81 mg tablet,delayed 81 mg PO DAILY@12 04/25/19 07/04/23 07/03/23 History release (Adult Low Dose Aspirin) duloxetine 30 mg capsule,delayed 30 mg PO BID #180 caps 12/23/22 07/04/23 07/04/23 Rx release amlodipine 10 mg tablet 10 mg PO QAM 07/04/23 07/04/23 07/04/23 05:30 History atorvastatin 10 mg tablet 10 mg PO BEDTIME 07/04/23 07/04/23 07/03/23 History carvedilol 12.5 mg tablet 12.5 mg PO BID 07/04/23 07/04/23 07/04/23 History cholecalciferol (vitamin D3) 25 25 mcg PO QAM 07/04/23 07/04/23 Unknown History mcg (1,000 unit) capsule (Vitamin D3) cyclobenzaprine 10 mg tablet 10 mg PO BEDTIME muscle spasm 07/04/23 07/04/23 07/03/23 History gabapentin 600 mg tablet 600 mg PO Q8H 07/04/23 07/04/23 07/04/23 History hydrocodone 5 mg-acetaminophen 325 1 tab PO BEDTIME Pain 07/04/23 07/04/23 Unknown History mg tablet levetiracetam 500 mg tablet 500 mg PO BID 07/04/23 07/04/23 07/04/23 History losartan 100 mg tablet 100 mg PO DAILY@12 07/04/23 07/04/23 07/03/23 History metformin 500 mg tablet 500 mg PO QPM 07/04/23 07/04/23 07/03/23 History tamsulosin 0.4 mg capsule 0.8 mg PO BEDTIME 07/04/23 07/04/23 07/03/23 History triamcinolone acetonide 0.1 % 1 applic topical DAILY PRN unknown 07/04/23 07/04/23 Unknown History topical cream Allergies Allergy/AdvReac Type Severity Reaction Status Date / Time Iodinated Contrast Media Allergy anaphylaxis Verified 07/04/23 10:29 shrimp Allergy anaphylaxix Verified 07/04/23 10:29 [facility] Anesthesia Medical History (Updated 07/04/23 @ 13:23 by RANDY Chisholm) Benign prostatic hyperplasia with lower urinary tract symptoms Chronic thoracic back pain History of nonmelanoma skin cancer Subcutaneous cyst Cervical disc disease Osteoarthritis of lumbar spine Lumbar stenosis with neurogenic claudication Intervertebral disc disorder with radiculopathy of lumbosacral region Thoracic degenerative disc disease Thalamic hemorrhage with stroke 12/07/2017 Acute hemorrhage involving the left thalamus and basal ganglia Allergy to iodinated contrast media Meningioma of cerebellum Presence of IVC filter Thalamic pain syndrome Accelerated essential hypertension Diabetes mellitus History of renal cell cancer History of DVT (deep vein thrombosis) Labral tear of right hip joint Surgical History (Updated 07/04/23 @ 12:38 by Hanh Reardon MD) History of colonoscopy 02/2022 Dr Werner - several sessile polyps removed, few small internal hemorrhoids. Follow up recommended in 3 years (2024). History of lumbar surgery 2020 Dr. Olga PHILLIPS - Right L3/4 laminectomy with partial facetectomy, Right revision L4/5 laminectomy with partial facetectomy, Right revision L5/S1 laminectomy with partial facetectomy 2003 Dr. Hermila Duncan [facility] - Lumbar decompression 1995 [facility] - Lumbar decompression 1986 [place] - Lumbar decompression History of hernia repair History of appendectomy H/O partial nephrectomy right Hx of cholecystectomy Family History Mother Stroke Grandmother Stroke Brother Stroke Social History Smoking and tobacco/nicotine status: never used tobacco/nicotine Second hand smoke exposure: No Alcohol intake: never Substance/Drug Use: never Household members: spouse Marital status: Current occupational status: retired and disabled Data Anesthesia 07/04/23 09:25 07/04/23 09:25 Short CBC 07/04/23 Range/Units 09:25 WBC 6.01 (3.29-11.43) 10^3/uL Hgb 14.10 (11.27-16.99) g/dL Hct 41.0 (37-53) % MCV 88.6 (82-101) fl Plt Count 227 (157-399) 10^3/cmm Neut % (Auto) 60.0 % Neut # (Auto) 3.61 (1.8-7.7) 10^3/uL BMP 07/04/23 09:25 Sodium 143 Potassium 4.7 Chloride 106 Carbon Dioxide 26 BUN 15 Creatinine 0.7 Glucose 166 H Calcium 9.1 Cardiac Enzymes 07/04/23 Range/Units 12:55 NT-Pro-B Natriuret Pep < 36 (0-125) pg/mL Liver Function 07/04/23 Range/Units 09:25 Total Bilirubin 0.9 (0.15-1.2) mg/dL AST 31 (0-40) U/L ALT 51 H (0-41) U/L Alkaline Phosphatase 108 (40-130) U/L Albumin 4.4 (3.5-5.2) g/dL Urine 07/04/23 Range/Units 12:09 Urine Color Yellow (Yellow) Urine Appearance Clear (CLEAR) Urine pH 5 (5-7) Ur Specific [place] 1.025 (1.005-1.030) Urine Protein 1+ H (Negative) Urine Glucose (UA) Norm (Normal) Urine Ketones 1+ H (Negative) Urine Nitrate Negative (Negative) Urine Bilirubin Neg (Negative) Ur Leukocyte Esterase Trace H (Negative) Urine RBC 0-4 H (0-2) /hpf Urine WBC 0-4 H (0-5) /hpf Cardiac Studies: 2 No Data to Display
[2023-07-04] MEDS: ceFAZolin 2,000 MG in sodium chloride 0.9% (plus) 50 ML 100 MG IV (13:49)
[2023-07-04] MEDS: ceFAZolin 1,000 mg SDV 1000 MG IVP (13:49)
[2023-07-04] MEDS: sodium chloride 0.9% 1,000 ML 30 ML IV (13:58)
--- NOTE | 2023-07-04 14:57 | XR_ITS ---
WS: [id number] XR hip RT 1V wo/w pel [id number] REASON FOR EXAM: surgery FINDINGS: Total right hip arthroplasty. Prosthetic components are intact and in proper position and alignment. XR/XR hip RT 1V wo/w pel [id number] IMPRESSION: Total right hip arthroplasty without abnormality.
--- NOTE | 2023-07-04 15:00 | PM.OP ---
Operative Report Date of procedure: July 04, 2023 Pre-op diagnosis: Right displaced femoral neck fracture Post-op diagnosis: same Procedure done: Right hip hemiarthroplasty Surgeon: Terence Espinoza DO Estimated blood loss (mL): 50 Procedure: Right hip hemiarthroplasty Patient is brought to the operative suite after undergoing anesthesia was placed in lateral cubitus position with the right side up. All areas impingement well-padded. Patient was prepped draped normal sterile fashion. Skin incision made over the right lateral hip. Modified Wilkerson approach was used IT band was split the abductors and capsule were taken anteriorly. Femoral neck cut was made approximately fingerbreadth above the lesser trochanter. The femoral head was then removed. Measured to be 54. Next attention was brought to the femur. The hot box checker was used followed by the canal finder followed by the lateralizer. The canal was then broached up to 7. Size 7 stem was then used negative neck length and 54 head from Memo system were then attached. Hip was reduced felt to be stable in all positions leg lengths were equal. Wounds were irrigated abductors and capsule repaired with FiberWire. IT band was closed with 1 Vicryl and skin was closed with 0 Vicryl 2-0 Vicryl and annabelle. Sterile dressings were applied and patient was transferred to the PACU in stable condition.
[2023-07-04] MEDS: fentaNYL 50 mcg/mL INJ 2mL IVP ×2 (15:33→15:53)
[2023-07-04] MEDS: HYDROcodone-acetaminophen 5-325 mg Tablet PO ×2 (16:39→23:58)
[2023-07-04] MEDS: cholecalciferol (vitamin D3) 1,000 unit Tablet 2000 UNIT PO (16:39)
[2023-07-04] MEDS: sodium chlor 0.9% + KCl 20 mEq 20 MEQ/1,000 ML BAG 75 MEQ IV (16:40)
[2023-07-04] MEDS: gabapentin 300 mg Capsule 600 MG PO ×2 (16:40→20:27)
[2023-07-04 16:44] LABS: Glucose Point of Care 156 mg/dL (70-110)
[2023-07-04 17:32] LABS: Adenovirus Not Detected (NOT DETECT); Chlamydia Pneumoniae Not Detected (NOT DETECT); Coronavirus 229E,HKU1,NL63,OC4 Not Detected (NOT DETECT); Human Metapneumovirus Not Detected (NOT DETECT); Human Rhinovirus/Enterovirus Not Detected (NOT DETECT); Influenza A Not Detected (NOT DETECT); Influenza A H1 Not Detected (NOT DETECT); Influenza A H1-2009 Not Detected (NOT DETECT); Influenza A H3 Not Detected (NOT DETECT); Influenza B Not Detected (NOT DETECT); Mycoplasma Pneumoniae Not Detected (NOT DETECT); Parainfluenza Virus Type 1 Not Detected (NOT DETECT); Parainfluenza Virus Type 2 Not Detected (NOT DETECT); Parainfluenza Virus Type 3 Not Detected (NOT DETECT); Parainfluenza Virus Type 4 Not Detected (NOT DETECT); Respiratory Syncytial Virus A Not Detected (NOT DETECT); Respiratory Syncytial Virus B Not Detected (NOT DETECT); SARS-COV-2 Not Detected (NOT DETECT)
[2023-07-04] MEDS: insulin lispro 100 unit/1 mL SUBCUT ×2 (18:10→21:11)
[2023-07-04] MEDS: docusate sodium 100 mg Capsule PO (18:10)
[2023-07-04] MEDS: sennosides 8.6 mg Tablet 17.1999999999999993 MG PO (20:27)
[2023-07-04] MEDS: atorvastatin 40 mg Tablet PO (20:27)
[2023-07-04] MEDS: cyclobenzaprine 10 mg Tablet PO (20:27)
[2023-07-04] MEDS: tamsulosin 0.4 mg Capsule 0.800000000000000044 MG PO (20:27)
[2023-07-04] MEDS: levETIRAcetam 500 mg Tablet PO (20:31)
[2023-07-04] MEDS: duloxetine 30 mg Capsule PO (20:31)
[2023-07-04] MEDS: carvedilol 12.5 mg Tablet PO (20:36)
[2023-07-04 20:47] LABS: Glucose Point of Care 189 mg/dL (70-110)
[2023-07-04] MEDS: ceFAZolin 3,000 MG in sodium chloride 0.9% (100 ml) 100 ML 200 MG IV (21:13)
[2023-07-05 00:58] VITALS: BP 118/74; PULSE 91; RESP 18; TEMP 36.4; O2SAT 95
[2023-07-05 05:19] LABS: Basophils % 0.2 %; Eosinophils % 0.1 %; Hematocrit 36.9 % (37-53); Lymphocytes # 0.7 10^3/uL (0.8-4.8); Lymphocytes % 5.4 %; Mean Corpuscular HGB Conc 35.2 g/dL (30-55); Mean Corpuscular Hemoglobin 30.2 pg (27-33); Mean Corpuscular Volume 85.8 fl (82-101); Mean Platelet Volume 10.9 fL (7.4-10.4); Monocytes # 0.8 10^3/uL (0.2-0.9); Monocytes % 6.6 %; Neutrophils # 10.82 10^3/uL (1.8-7.7); Neutrophils % 87.3 %; Nucleated Red Blood Cells % 0 %; Platelet Count 193 10^3/cmm (157-399); Red Cell Distribution Width 12.6 % (12.1-15.1)
[2023-07-05 05:25] VITALS: BP 143/84; PULSE 93; RESP 18; TEMP 36.4; O2SAT 99
[2023-07-05] MEDS: sodium chlor 0.9% + KCl 20 mEq 20 MEQ/1,000 ML BAG 75 MEQ IV ×2 (05:38→17:46)
[2023-07-05] MEDS: ceFAZolin 3,000 MG in sodium chloride 0.9% (100 ml) 100 ML 200 MG IV (05:38)
[2023-07-05] MEDS: amlodipine 10 mg Tablet 5 MG PO (05:38)
[2023-07-05] MEDS: HYDROcodone-acetaminophen 5-325 mg Tablet PO ×4 (05:39→20:50)
[2023-07-05 05:41] LABS: Alanine Aminotransferase 43 U/L (0-41); Albumin Level 3.8 g/dL (3.5-5.2); Alkaline Phosphatase 99 U/L (40-130); Aspartate Amino Transferase 34 U/L (0-40); Blood Urea Nitrogen 13 mg/dL (8-23); Calcium 8.9 mg/dL (8.5-10.5); Carbon Dioxide 25 mmol/L (22-29); Chloride 102 mmol/L (98-107); Creatinine Clr Calc Pharmacy 132.7334; Globulin 2.8 g/dL (1.3-4.6); Glomerular Filtration Rate 134.8 mL/min (90-130); Glucose 191 mg/dL (65-115); Magnesium 1.9 mg/dL (1.7-2.3); Osmolality Calculated 291 mOsm/kg (285-295); Sodium 138 mmol/L (136-145); Total Bilirubin 0.9 mg/dL (0.15-1.2); Total Protein 6.6 g/dL (6.6-8.7)
[2023-07-05 05:44] LABS: Anion Gap 15.2 (5-19); Potassium 4.2 mmol/L (3.5-5.1)
--- NOTE | 2023-07-05 05:59 | ECG_ITS ---
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 Measurements Intervals [place] Rate: 86 P: 42 WV: 234 QRS: 47 QRSD: 102 T: 36 QT: 340 QTc: 408 Interpretive Statements SINUS RHYTHM WITH FIRST DEGREE AV BLOCK Compared to ECG 07/04/2023 11:51:33 First degree AV block now present Electronically Signed On 07-05-2023 17:19:22 CDT by Hadley Maldonado M.D. [email or web address] at stone [email or web address] [email or web address].[email or web address]/[id number]
--- NOTE | 2023-07-05 06:00 | XRR_ITS ---
PROCEDURE INFORMATION: Exam: XR Chest Exam date and time: 07/05/2023 7:45 AM Age: 67 years old Clinical indication: Shortness of breath; Additional info: Hypoxemia, viral exposure, abnormal pre-op xray. No history of recent trauma or surgery is provided. TECHNIQUE: Imaging protocol: Radiologic exam of the chest. 1image(s) are provided. Views: 1 view. COMPARISON: 1. CR XR chest 1V portable [id number] 07/04/2023 11:57 AM 2. CR XR chest 1V [id number] 12/23/2016 11:40 PM FINDINGS: Lungs: No lobar consolidation is appreciated.There is improved lung volume and aeration.There is some subsegmental atelectasis versus post inflammatory scarring demonstrated. There is some persistent patchy opacification residual at the left lung base and could be atelectatic versus marginal inflammation. Pleural spaces: There is some minimal costophrenic angle blunting. No pneumothorax is appreciated. Heart/Mediastinum: The cardiomediastinal silhouette is upper normal in size.No cardiac decompensation is appreciated. Diaphragm: There is slight asymmetric left hemidiaphragmatic elevation. Bones/joints: Osseous alignment is maintained. No interval displaced fracture or dislocation is appreciated. There are some degenerative changes of the spine and shoulders demonstrated. Soft tissues: No radiopaque foreign body or subcutaneous emphysema is appreciated. Other findings: No other significant interval changes are appreciated. XR/XR chest 1V portable [id number] IMPRESSION: There is some patchy subsegmental atelectasis versus subsegmental inflammation residual at the left lung base. Overall central and basal aeration does appear improved as well as lung volumes in the interval indicative of intervally improving aeration.
[2023-07-05] MEDS: lidocaine 2% viscous 15 ML, aluminum-mag hydrox-simethicon 30 ML, sucralfate oral liq 1 GM PO (06:06)
[2023-07-05 06:41] LABS: Glucose Point of Care 190 mg/dL (70-110)
[2023-07-05 06:47] LABS: Slide Review Slide Review Perform
[2023-07-05 07:27] LABS: Troponin T (5th) Once 12 ng/L (0-15)
[2023-07-05 08:00] VITALS: BP 132/75; PULSE 92; RESP 16; O2SAT 97
[2023-07-05] MEDS: cholecalciferol (vitamin D3) 1,000 unit Tablet 2000 UNIT PO (08:12)
[2023-07-05] MEDS: losartan 50 mg Tablet PO (08:13)
[2023-07-05] MEDS: gabapentin 300 mg Capsule 600 MG PO ×3 (08:13→20:49)
[2023-07-05] MEDS: duloxetine 30 mg Capsule PO ×2 (08:13→20:49)
[2023-07-05] MEDS: aspirin 325 mg Tablet PO (08:13)
[2023-07-05] MEDS: carvedilol 12.5 mg Tablet PO ×2 (08:13→20:49)
[2023-07-05] MEDS: docusate sodium 100 mg Capsule PO ×2 (08:13→17:43)
[2023-07-05] MEDS: pantoprazole DR 40 mg Tablet PO (08:13)
--- NOTE | 2023-07-05 08:13 | P.PN_ITS ---
Subjective 2 Subjective: Patient laying in bed when not moving pain controlled when he moves pain hurts. Vitals/I&O/Wt Last Vital Signs Temp 97.6 F 07/05/23 05:25 Pulse 92 07/05/23 08:00 Resp 16 07/05/23 08:00 BP 132/75 07/05/23 08:00 Pulse Ox 97 07/05/23 08:00 O2 Del Method Nasal Cannula 07/05/23 08:00 O2 Flow Rate 2 07/04/23 20:36 07/04/23 07/05/23 07/05/23 22:59 06:59 14:59 Intake Total 1069 / 1119 1312.5 / 2431.5 Output Total 300 / 300 2000 / 2300 Balance 769 / 819 -687.5 / 131.5 Weight last 48 hrs Weight 290 lb Weight 269 lb Weight 263 lb Physical Exam 2 Narrative: Leg lengths equal patient comfortable in bed. Urinary Catheter Management: De Luna Latex Free: Cath Placed During This Visit: yes Reason for Continuing Indwelling Catheter: Required Immobilization for Trauma or Surgery or Anesthesia Urinary Catheter Date of Insertion: 07/04/23 Data 07/05/23 04:45 07/05/23 04:45 A&P Assessment and plan (1) Closed displaced fracture of right femoral neck: Postop day #1 right hip hemiarthroplasty Encourage up with physical therapy DVT prophylaxis per primary service (okay to start from orthopedic standpoint) Attestations 2 Medical Necessity Statement*: Per primary service Coding Level of Care Code Acute Code for Chg Fwd Diagnoses Closed displaced fracture of right femoral neck S72.001A
[2023-07-05] MEDS: insulin lispro 100 unit/1 mL SUBCUT ×4 (08:14→21:09)
[2023-07-05] MEDS: calcium carbonate 500 mg Chew Tablet 1000 MG PO (08:17)
[2023-07-05] MEDS: cyclobenzaprine 10 mg Tablet PO ×2 (08:17→20:50)
[2023-07-05 08:46] VITALS: PULSE 106; RESP 16; O2SAT 97
--- NOTE | 2023-07-05 09:25 | PC.CHAP ---
Pastoral Care Encounter/Spiritual Assessment Type of Contact [] Declined peoplesoft developer visit [] Patient/Family/Request visit [] Outpatient visit [] Follow-up visit [] Physician referral [] Code/Alert [] Routine visit [] Staff referral [] Actively dying [x] Patient sleeping [] Family support [] [] Out of room [] Palliative care [] [] Receiving care in room [] Pre-surgical visit [] Trauma [] Long length of stay [] ICU visit [] Other: Relational/Emotional Strength [] Patient feels connected with others/family/visitors/staff [] Distress [] Loneliness/isolation [] Abandonment Spirituality of Patient [] Person of [place] [] Attends Bahai of their Kayce [] Believes in Prayer [] Reads Bible or Lutheran materials [] There are Spiritual issues to be addressed Sample Steamer Interventions [] Prayer [] Active listening [] Non-anxious presence [] Spiritual/emotional support [] Crisis/trauma care [] Spiritual counseling [] Bereavement support [] Provided bereavement packet [] Provided Bible/devotional materials [] Provided toy/stuffed animal, coloring book to patient or family member [] Provided Communion [] Anointing/[place] [] Salvation [] Completed spiritual assessment [] Other: Impact on Illness or Injury [] Angry [] Fearful [] Anxious [] Often cries [] Exhaustion [] Unable to work [] Unable to attend judaism [] Unable to walk/stand [] Unable to read [] Unable to drive [] Unable to eat/drink [] Unable to sleep [] Unable to be with family [] Patient intubated [] Other: Summary Time spent with patient
[2023-07-05] MEDS: levETIRAcetam 500 mg Tablet PO ×2 (09:55→20:56)
--- NOTE | 2023-07-05 11:06 | USCV_ITS ---
Kirby Boudreaux Age: 67 Gender: M : 1955 Exam Date: 07/05/2023 13:11 Ordering Phys: Tila Oakley MD Technologist: Exam Location: [facility] [place] Indication: ? mi BP: 134 / 65 HR: 90 Rhythm: Sinus Technical Quality: Adequate MEASUREMENTS (Male / Female) Normal Values 2D ECHO LV Diastolic Diameter PLAX 4.1 cm 4.2 - 5.9 / 3.9 - 5.3 cm IVS Diastolic Thickness 1.7 cm 0.6 - 1.0 / 0.6 - 0.9 cm IVS Systolic Thickness 1.7 cm LVPW Diastolic Thickness 1.3 cm 0.6 - 1.0 / 0.6 - 0.9 cm LVPW Systolic Thickness 1.3 cm LVOT Diameter 2.5 cm LV Ejection Fraction 2D Teich 64.5 % LV Ejection Fraction MOD 2C 71.0 % LV Ejection Fraction 2C AL 70.5 % LA Diameter 3.8 cm RA Systolic Volume 4C AL 37.7 ml RA Systolic Volume 4C MOD 36.8 ml Aorta at Sinotubular Diameter 2.8 cm M-MODE LA Ao Ratio MM 1.0 AV Cusp Separation MM 2.4 cm DOPPLER AV Peak Velocity 132.0 cm/s LVOT Peak Velocity 82.0 cm/s AV Area Cont Eq vti 3.6 cm squared AV Area Cont Eq pk 3.0 cm squared MV Area PHT 8.7 cm squared Mitral E to A Ratio 0.6 TR Peak Velocity 290.0 cm/s TR Peak Gradient 33.6 mmHg TV Peak E Velocity 164.0 cm/s Right Atrial Pressure 3.0 mmHg Pulmonary Artery Systolic Pressu 36.6 mmHg PV Peak Velocity 88.0 cm/s FINDINGS Left Ventricle Left ventricle is normal size. LV systolic function is normal with EF 60-65%. No regional wall motion abnormalities are seen. Grade 1 diastolic dysfunction Right Ventricle Normal in size and function Right Atrium Normal in size Left Atrium Normal in size Mitral Valve Structurally normal mitral valve. Aortic Valve Structurally normal aortic valve. No significant stenosis or regurgitation. Tricuspid Valve Mild tricuspid regurgitation. RVSP is 35 to 40 mmHg. This is consistent with mild pulmonary hypertension. Pulmonic Valve Not well visualized Pericardium Normal Aorta Normal in size IVC Appears to be normal CONCLUSIONS LV systolic function is normal with EF of 60 to 65%. Grade 1 diastolic dysfunction. Mild tricuspid regurgitation Mild pulmonary hypertension Compared to prior echocardiogram from 2017, no significant changes are seen Hadley Maldonado MD (Electronically Signed) Final Date: 06 Jul 2023 11:21 S
--- NOTE | 2023-07-05 11:15 | ECG_ITS ---
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 Measurements Intervals [place] Rate: 102 P: 39 [place]: 202 QRS: 16 QRSD: 93 T: 31 QT: 302 QTc: 394 Interpretive Statements SINUS TACHYCARDIA LOW QRS VOLTAGE IN PRECORDIAL LEADS [QRS DEFLECTION < 1.0 mV IN CHEST LEADS] Compared to ECG 07/05/2023 05:59:36 Low QRS voltage now present Sinus rhythm no longer present First degree AV block no longer present Electronically Signed On 07-05-2023 17:23:50 CDT by Hadley Maldonado M.D. [id number]
[2023-07-05 11:46] LABS: Glucose Point of Care 194 mg/dL (70-110)
[2023-07-05 11:56] LABS: Troponin(5th) Baseline 15 ng/L (0-15)
[2023-07-05] MEDS: ceFAZolin 3,000 MG in sodium chloride 0.9% (100 ml) 100 ML 100 MG IV (13:02)
[2023-07-05 13:33] LABS: Troponin 5 2HR 16.22 ng/L (0-15); Troponin 5 2HR Delta 1.22 ABS# (0-10)
--- NOTE | 2023-07-05 13:59 | P.PN_ITS ---
Subjective 2 Subjective: seen this morning complains of heart burn which improved with tums he says he sometimes has this issue at home. Vitals/I&O/Wt Last Vital Signs Temp 97.6 F 07/05/23 05:25 Pulse 106 H 07/05/23 08:46 Resp 16 07/05/23 08:46 BP 132/75 07/05/23 08:00 Pulse Ox 97 07/05/23 08:46 O2 Del Method Nasal Cannula 07/05/23 08:46 O2 Flow Rate 2 07/05/23 08:46 07/04/23 07/05/23 07/05/23 22:59 06:59 14:59 Intake Total 1069 / 1119 1312.5 / 2431.5 Output Total 300 / 300 2000 / 2300 Balance 769 / 819 -687.5 / 131.5 Weight last 48 hrs Weight 131.542 kg Weight 122.016 kg Weight 119.295 kg Physical Exam 2 Narrative: sitting up comfortably in bed lungs clear to auscultation b/l abd soft non tender right sided weakness present Urinary Catheter Management: De Luna Latex Free: Cath Placed During This Visit: yes, but has since been removed by the nurse Reason for Continuing Indwelling Catheter: Decision to DC Catheter Urinary Catheter Date of Insertion: 07/04/23 Date Urinary Catheter Removed: 07/05/23 Time Urinary Catheter Discontinued: 12:35 Data 07/05/23 04:45 07/05/23 04:45 A&P Assessment and plan (1) Fall: At home, same level, tripped over his right foot while walking. Right-sided motor deficits from prior stroke contributing factor. Qualifiers: Encounter type: initial encounter Qualified Code(s): W19.XXXA - Unspecified fall, initial encounter (2) Closed displaced fracture of right femoral neck: Initial encounter. Going to the OR today for surgical repair by Dr. Espinoza. Personally discussed with orthopedics and anesthesia patient's pertinent medical history as described in this note. (3) Abnormal chest xray: Suboptimal positioning, no reported respiratory symptoms prior to ED visit. Had some hypoxemia in ED after narcotic pain medication and currently on oxygen at 2L BNC. Should be noted that patient has had exposure to viral illness that was described by his /[id number] as COVID in the eyes . He has had some runny nose lately but no other respiratory symptoms or indications of infection described. No known history of CHF. (4) Hypertension: Chronically on carvedilol, amlodipine, losartan. After pain medication administered in the emergency room patient's blood pressures are within normal range. Records indicate a history of accelerated hypertension in the past. Qualifiers: Hypertension type: primary hypertension Qualified Code(s): I10 - Essential (primary) hypertension (5) Diabetes mellitus type 2, controlled: Chronically on metformin and gabapentin, also on statin and aspirin Qualifiers: Diabetes mellitus long chain quiller tender insulin use: without long chain quiller tender use Diabetes mellitus complication status: with neurologic complications Diabetes mellitus complication detail: with polyneuropathy Qualified Code(s): E11.42 - Type 2 diabetes mellitus with diabetic polyneuropathy (6) History of stroke: Hemorrhagic stroke in 2018 with residual right-sided motor weakness, uses can for walking (7) Personal history of renal cancer: With history of partial right nephrectomy, currently stable renal fucntion (8) Allergy to iodinated contrast media: Noted in chart (9) Presence of IVC filter: Due to history of prior DVT (10) Benign prostatic hyperplasia with lower urinary tract symptoms: Chronically on flomax (11) History of lumbar surgery: No known history of anesthesia problems, has chronic associated pain and osteoarthritis in multiple joints for which he is chronically on hydrocodone and flexeril as well as duloxetine, vitamin D (12) 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 Espinoza Pain control as needed postoperatively Chronically on gabapentin and duloxetine along with as needed Flexeril which should be helpful adjunct of treatments Chronically takes approximately 1 hydrocodone a day at bedtime though anticipate holding this while he is on alternative pain management in the immediate postoperative period Will want to maximize nonopioid pain management Will recheck LFTs in the morning Low volume IV fluids tonight until taking better oral intake postoperatively Incentive spirometer and as needed breathing treatments Oxygen therapy as needed Get baseline BNP Monitor respiratory status for need to adjust respiratory management Will send COVID PCR testing given report from family Recheck chest x-ray once able to be supine Currently recommend usual perioperative antibiotic regimen Continue patient's usual home dose of carvedilol along with half-doses of losartan and amlodipine initially with plan to titrate to usual home dose as needed postoperatively. Parameters for holding antihypertensives written. Hold patient's home metformin currently, will add low-dose sliding scale insulin and Accu-Cheks Continue home atorvastatin Neurochecks postoperatively Recheck renal function in the morning Aware of IVC filter, plan for SCDs and likely increased dose and aspirin for pharmacological prophylaxis versus Lovenox after discussion with orthopedics Continue home Flomax Continue home Keppra Supportive care otherwise VTE prophylaxis: Postoperatively recommend SCDs. Pharmacologically can increase to whole aspirin for DVT prophylaxis (or consider lovenox with monitoring of neurological status. Have discussed risk of bleeding and recurrent DVT with patient and family. He does have a IVC filter in place GI Prophylaxis: PPI Antibiotics: Usual postoperative antibiotics Pending studies: BNP and COVID testing Telemetry: Not currently indicated though will monitor for changes De Luna: Currently in place with plan to remove after surgery, known to have BPH Line(s): peripheral IVs Disposition plan: Reviewed potential disposition options including skilled rehabilitation, home care and general recovery process. Prefers [facility]. Code Status: Full Code Supportive care otherwise Findings, concerns and plans were discussed with patient and family present and they all were given an opportunity to ask questions Todays plan 07/05/2023 - heart burn better with tums - will check trop series, ekg, echo to ensure cardiac cause r/0 - pt will need rehab [facility] continue pain mgmt ortho following Attestations 2 Medical Necessity Statement*: Anticipated stay greater than two midnights in this gentleman who sustained a fall at home and was found to have a right femoral neck fracture. Diagnoses Fall, initial encounter W19.XXXA Encounter type: initial encounter Closed displaced fracture of right femoral neck S72.001A Abnormal chest xray R93.89 Primary hypertension I10 Hypertension type: primary hypertension Controlled type 2 diabetes mellitus with diabetic polyneuropathy, without long- term current use of insulin E11.42 Diabetes mellitus long chain quiller tender insulin use: without long chain quiller tender use Diabetes mellitus complication status: with neurologic complications Diabetes mellitus complication detail: with polyneuropathy History of stroke Z86.73 Personal history of renal cancer Z85.528 Allergy to iodinated contrast media Z91.041 Presence of IVC filter Z95.828 Benign prostatic hyperplasia with lower urinary tract symptoms N40.1 History of lumbar surgery Z98.890 Meningioma of cerebellum D32.0
--- NOTE | 2023-07-05 14:15 | ECG_ITS ---
[facility] Test Date: 2023-07-05 Pat Name: Kirby Boudreaux Department: Room: 264 Gender: Male [employer]: : 1955 Requested By: Tila Oakley Order Number: [id number] Hilda MD: Hadley Maldonado M.D. Measurements Intervals [place] Rate: 92 P: 45 AR: 226 QRS: 40 QRSD: 100 T: 33 QT: 331 QTc: 411 Interpretive Statements SINUS RHYTHM WITH FIRST DEGREE AV BLOCK Compared to ECG 07/05/2023 11:15:48 First degree AV block now present Sinus tachycardia no longer present Electronically Signed On 07-05-2023 17:21:38 CDT by Hadley Maldonado M.D. [email or web address].[email or web address] [id number]
[2023-07-05 16:00] VITALS: BP 136/78; PULSE 97; RESP 16; TEMP 36.9; O2SAT 90
[2023-07-05 17:07] LABS: Glucose Point of Care 161 mg/dL (70-110)
[2023-07-05 18:39] LABS: Troponin 5 6HR 15.85 ng/L (0-15); Troponin 5 6HR Delta 0.85 ng/L (0-12)
[2023-07-05 20:35] VITALS: BP 151/81; PULSE 99; RESP 18; TEMP 37.1; O2SAT 91
[2023-07-05] MEDS: atorvastatin 40 mg Tablet PO (20:49)
[2023-07-05] MEDS: sennosides 8.6 mg Tablet 17.1999999999999993 MG PO (20:49)
[2023-07-05] MEDS: tamsulosin 0.4 mg Capsule 0.800000000000000044 MG PO (20:50)
[2023-07-05 21:04] LABS: Glucose Point of Care 188 mg/dL (70-110)
[2023-07-06] VITALS (7 sets, daily range): BP systolic 110–161; BP diastolic 66–90; PULSE 81–94; RESP 16–20; TEMP 36.7–37.1; O2SAT 89–92
[2023-07-06] MEDS: HYDROcodone-acetaminophen 5-325 mg Tablet PO ×5 (01:38→21:41)
[2023-07-06] MEDS: amlodipine 10 mg Tablet 5 MG PO (05:55)
[2023-07-06 06:28] LABS: Basophils % 0.2 %; Eosinophils # 0.1 10^3/uL (0.0-0.8); Eosinophils % 0.5 %; Hematocrit 34.9 % (37-53); Lymphocytes # 1.3 10^3/uL (0.8-4.8); Lymphocytes % 10.3 %; Mean Corpuscular HGB Conc 33.8 g/dL (30-55); Mean Corpuscular Hemoglobin 30.3 pg (27-33); Mean Corpuscular Volume 89.5 fl (82-101); Mean Platelet Volume 10.6 fL (7.4-10.4); Monocytes # 1.7 10^3/uL (0.2-0.9); Monocytes % 13.4 %; Neutrophils # 9.35 10^3/uL (1.8-7.7); Nucleated Red Blood Cells % 0 %; Platelet Count 184 10^3/cmm (157-399); White Blood Count 12.46 10^3/uL (3.29-11.43)
[2023-07-06 06:40] LABS: Glucose Point of Care 186 mg/dL (70-110)
[2023-07-06 06:47] LABS: Alanine Aminotransferase 23 U/L (0-41); Albumin Level 3.7 g/dL (3.5-5.2); Alkaline Phosphatase 106 U/L (40-130); Anion Gap 12.2 (5-19); Aspartate Amino Transferase 23 U/L (0-40); Blood Urea Nitrogen 16 mg/dL (8-23); Calcium 9.8 mg/dL (8.5-10.5); Carbon Dioxide 30 mmol/L (22-29); Chloride 101 mmol/L (98-107); Creatinine Clr Calc Pharmacy 134.2252; Globulin 2.8 g/dL (1.3-4.6); Glomerular Filtration Rate 134.8 mL/min (90-130); Glucose 199 mg/dL (65-115); Osmolality Calculated 295 mOsm/kg (285-295); Potassium 4.2 mmol/L (3.5-5.1); Sodium 139 mmol/L (136-145); Total Bilirubin 1.3 mg/dL (0.15-1.2); Total Protein 6.5 g/dL (6.6-8.7)
[2023-07-06] MEDS: losartan 50 mg Tablet PO (09:16)
[2023-07-06] MEDS: insulin lispro 100 unit/1 mL SUBCUT ×4 (09:16→21:41)
[2023-07-06] MEDS: aspirin 325 mg Tablet PO (09:16)
[2023-07-06] MEDS: cholecalciferol (vitamin D3) 1,000 unit Tablet 2000 UNIT PO (09:16)
[2023-07-06] MEDS: docusate sodium 100 mg Capsule PO ×2 (09:17→17:37)
[2023-07-06] MEDS: carvedilol 12.5 mg Tablet PO ×2 (09:17→20:33)
[2023-07-06] MEDS: pantoprazole DR 40 mg Tablet PO (09:17)
[2023-07-06] MEDS: cyclobenzaprine 10 mg Tablet PO (09:17)
[2023-07-06] MEDS: duloxetine 30 mg Capsule PO ×2 (09:17→20:33)
[2023-07-06] MEDS: gabapentin 300 mg Capsule 600 MG PO ×3 (09:17→20:33)
[2023-07-06] MEDS: levETIRAcetam 500 mg Tablet PO ×2 (09:19→20:33)
--- NOTE | 2023-07-06 09:57 | PC.SOCIAL ---
IMM Update Pg. 2 of IMM updated. Copy provided, copy placed in chart.
--- NOTE | 2023-07-06 09:58 | PM.PN ---
Subjective Subjective: Patient is sitting up in chair at this time. Complaining of groin pain more so. Walked 5 feet with physical therapy. [facility]. Vitals/I&O/Wt Last Vital Signs Temp 98.3 F 07/06/23 08:00 Pulse 90 07/06/23 08:07 Resp 16 07/06/23 08:07 BP 154/87 07/06/23 08:00 Pulse Ox 89 L 07/06/23 08:07 O2 Del Method Nasal Cannula 07/06/23 08:07 O2 Flow Rate 0.5 07/06/23 08:07 07/05/23 07/06/23 07/06/23 22:59 06:59 14:59 Intake Total 1150 / 1250 240 / 1490 360 / 360 Output Total 200 / 200 375 / 575 Balance 950 / 1050 -135 / 915 360 / 360 Weight last 48 hrs Weight 296 lb 6.4 oz Weight 290 lb Weight 269 lb Weight 263 lb Physical Exam Narrative: Sitting up in chair dressings clean dry intact Urinary Catheter Management: De Luna Latex Free: Cath Placed During This Visit: yes, but has since been removed by the nurse Reason for Continuing Indwelling Catheter: Decision to DC Catheter Urinary Catheter Date of Insertion: 07/04/23 Date Urinary Catheter Removed: 07/05/23 Time Urinary Catheter Discontinued: 12:35 Data 07/06/23 05:50 07/06/23 05:50 A&P Assessment and plan (1) Closed displaced fracture of right femoral neck: Patient is status post right hip hemiarthroplasty. Discharge planning Attestations Medical Necessity Statement*: Per primary service Coding Level of Care Code Acute Code for [facility] Fwd Diagnoses Closed displaced fracture of right femoral neck S72.001A
[2023-07-06 11:25] LABS: Glucose Point of Care 230 mg/dL (70-110)
--- NOTE | 2023-07-06 12:13 | P.PN_ITS ---
Subjective 2 Subjective: seen this morning pt requesting pain meds Vitals/I&O/Wt Last Vital Signs Temp 98.1 F 07/06/23 11:57 Pulse 86 07/06/23 11:57 Resp 18 07/06/23 11:57 BP 132/71 07/06/23 11:57 Pulse Ox 91 07/06/23 11:57 O2 Del Method Nasal Cannula 07/06/23 11:57 O2 Flow Rate 0.5 07/06/23 08:07 07/05/23 07/06/23 07/06/23 22:59 06:59 14:59 Intake Total 1150 / 1250 240 / 1490 1360 / 1360 Output Total 200 / 200 375 / 575 Balance 950 / 1050 -135 / 915 1360 / 1360 Weight last 48 hrs Weight 134.445 kg Weight 131.542 kg Weight 122.016 kg Weight 119.295 kg Physical Exam 2 Narrative: laying in bed comfortably lungs clear to auscultation b/l abd soft non tender right sided weakness present Urinary Catheter Management: De Luna Latex Free: Cath Placed During This Visit: yes, but has since been removed by the nurse Reason for Continuing Indwelling Catheter: Decision to DC Catheter Urinary Catheter Date of Insertion: 07/04/23 Date Urinary Catheter Removed: 07/05/23 Time Urinary Catheter Discontinued: 12:35 Data 07/06/23 05:50 07/06/23 05:50 A&P Assessment and plan (1) Fall: At home, same level, tripped over his right foot while walking. Right-sided motor deficits from prior stroke contributing factor. Qualifiers: Encounter type: initial encounter Qualified Code(s): W19.XXXA - Unspecified fall, initial encounter (2) Closed displaced fracture of right femoral neck: Initial encounter. Going to the OR today for surgical repair by Dr. Espinoza. Personally discussed with orthopedics and anesthesia patient's pertinent medical history as described in this note. (3) Abnormal chest xray: Suboptimal positioning, no reported respiratory symptoms prior to ED visit. Had some hypoxemia in ED after narcotic pain medication and currently on oxygen at 2L BNC. Should be noted that patient has had exposure to viral illness that was described by his /[id number] as COVID in the eyes . He has had some runny nose lately but no other respiratory symptoms or indications of infection described. No known history of CHF. (4) Hypertension: Chronically on carvedilol, amlodipine, losartan. After pain medication administered in the emergency room patient's blood pressures are within normal range. Records indicate a history of accelerated hypertension in the past. Qualifiers: Hypertension type: primary hypertension Qualified Code(s): I10 - Essential (primary) hypertension (5) Diabetes mellitus type 2, controlled: Chronically on metformin and gabapentin, also on statin and aspirin Qualifiers: Diabetes mellitus long term care social worker insulin use: without long term care social worker use Diabetes mellitus complication status: with neurologic complications Diabetes mellitus complication detail: with polyneuropathy Qualified Code(s): E11.42 - Type 2 diabetes mellitus with diabetic polyneuropathy (6) History of stroke: Hemorrhagic stroke in 2018 with residual right-sided motor weakness, uses can for walking (7) Personal history of renal cancer: With history of partial right nephrectomy, currently stable renal fucntion (8) Allergy to iodinated contrast media: Noted in chart (9) Presence of IVC filter: Due to history of prior DVT (10) Benign prostatic hyperplasia with lower urinary tract symptoms: Chronically on flomax (11) History of lumbar surgery: No known history of anesthesia problems, has chronic associated pain and osteoarthritis in multiple joints for which he is chronically on hydrocodone and flexeril as well as duloxetine, vitamin D (12) 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 Espinoza Pain control as needed postoperatively Chronically on gabapentin and duloxetine along with as needed Flexeril which should be helpful adjunct of treatments Chronically takes approximately 1 hydrocodone a day at bedtime though anticipate holding this while he is on alternative pain management in the immediate postoperative period Will want to maximize nonopioid pain management Will recheck LFTs in the morning Low volume IV fluids tonight until taking better oral intake postoperatively Incentive spirometer and as needed breathing treatments Oxygen therapy as needed Get baseline BNP Monitor respiratory status for need to adjust respiratory management Will send COVID PCR testing given report from family Recheck chest x-ray once able to be supine Currently recommend usual perioperative antibiotic regimen Continue patient's usual home dose of carvedilol along with half-doses of losartan and amlodipine initially with plan to titrate to usual home dose as needed postoperatively. Parameters for holding antihypertensives written. Hold patient's home metformin currently, will add low-dose sliding scale insulin and Accu-Cheks Continue home atorvastatin Neurochecks postoperatively Recheck renal function in the morning Aware of IVC filter, plan for SCDs and likely increased dose and aspirin for pharmacological prophylaxis versus Lovenox after discussion with orthopedics Continue home Flomax Continue home Keppra Supportive care otherwise VTE prophylaxis: Postoperatively recommend SCDs. Pharmacologically can increase to whole aspirin for DVT prophylaxis (or consider lovenox with monitoring of neurological status. Have discussed risk of bleeding and recurrent DVT with patient and family. He does have a IVC filter in place GI Prophylaxis: PPI Antibiotics: Usual postoperative antibiotics Pending studies: BNP and COVID testing Telemetry: Not currently indicated though will monitor for changes De Luna: Currently in place with plan to remove after surgery, known to have BPH Line(s): peripheral IVs Disposition plan: Reviewed potential disposition options including skilled rehabilitation, home care and general recovery process. Prefers [facility]. Code Status: Full Code Supportive care otherwise Findings, concerns and plans were discussed with patient and family present and they all were given an opportunity to ask questions Todays plan 07/06/2023 - heart burn better with tums - will check trop series, ekg, echo to ensure cardiac cause r/0 - pt will need rehab at [facility] continue pain mgmt ortho following - plan for dc in am Attestations 2 Medical Necessity Statement*: Anticipated stay greater than two midnights in this gentleman who sustained a fall at home and was found to have a right femoral neck fracture. Diagnoses Fall, initial encounter W19.XXXA Encounter type: initial encounter Closed displaced fracture of right femoral neck S72.001A Abnormal chest xray R93.89 Primary hypertension I10 Hypertension type: primary hypertension Controlled type 2 diabetes mellitus with diabetic polyneuropathy, without long- term current use of insulin E11.42 Diabetes mellitus long term care social worker insulin use: without [facility] use Diabetes mellitus complication status: with neurologic complications Diabetes mellitus complication detail: with polyneuropathy History of stroke Z86.73 Personal history of renal cancer Z85.528 Allergy to iodinated contrast media Z91.041 Presence of IVC filter Z95.828 Benign prostatic hyperplasia with lower urinary tract symptoms N40.1 History of lumbar surgery Z98.890 Meningioma of cerebellum D32.0
[2023-07-06 16:18] LABS: Glucose Point of Care 158 mg/dL (70-110)
[2023-07-06] MEDS: atorvastatin 40 mg Tablet PO (20:33)
[2023-07-06] MEDS: tamsulosin 0.4 mg Capsule 0.800000000000000044 MG PO (20:33)
[2023-07-06] MEDS: sennosides 8.6 mg Tablet 17.1999999999999993 MG PO (20:33)
[2023-07-06 20:37] LABS: Glucose Point of Care 217 mg/dL (70-110)
[2023-07-07] VITALS: BP 110/68; PULSE 76; RESP 18; TEMP 36.8; O2SAT 92
[2023-07-07 04:00] VITALS: BP 100/67; PULSE 84; RESP 20; TEMP 36.8; O2SAT 92
[2023-07-07 04:53] LABS: SARS Covid-2 Antigen negative (Negative)
[2023-07-07 05:22] LABS: Basophils % 0.3 %; Eosinophils # 0.4 10^3/uL (0.0-0.8); Eosinophils % 3.9 %; Hematocrit 30.5 % (37-53); Lymphocytes # 1.3 10^3/uL (0.8-4.8); Lymphocytes % 13.6 %; Mean Corpuscular HGB Conc 33.1 g/dL (30-55); Mean Corpuscular Hemoglobin 30.2 pg (27-33); Mean Corpuscular Volume 91.3 fl (82-101); Mean Platelet Volume 10.7 fL (7.4-10.4); Monocytes # 1.2 10^3/uL (0.2-0.9); Monocytes % 12.6 %; Neutrophils # 6.69 10^3/uL (1.8-7.7); Neutrophils % 69.1 %; Nucleated Red Blood Cells % 0 %; Platelet Count 160 10^3/cmm (157-399); Red Blood Count 3.34 10^6/uL (3.85-5.65); White Blood Count 9.69 10^3/uL (3.29-11.43)
[2023-07-07 05:44] LABS: Anion Gap 10.4 (5-19); Blood Urea Nitrogen 25 mg/dL (8-23); Calcium 9.4 mg/dL (8.5-10.5); Carbon Dioxide 27 mmol/L (22-29); Chloride 103 mmol/L (98-107); Creatinine Clr Calc Pharmacy 134.5983; Glomerular Filtration Rate 112.8 mL/min (90-130); Glucose 173 mg/dL (65-115); Osmolality Calculated 291 mOsm/kg (285-295); Potassium 4.4 mmol/L (3.5-5.1); Sodium 136 mmol/L (136-145)
[2023-07-07 06:52] LABS: Glucose Point of Care 167 mg/dL (70-110)
[2023-07-07 07:54] VITALS: BP 102/63; PULSE 68; RESP 15; TEMP 36.6; O2SAT 91
[2023-07-07 07:55] VITALS: PULSE 77; RESP 16; O2SAT 91
[2023-07-07] MEDS: HYDROcodone-acetaminophen 5-325 mg Tablet PO (08:25)
[2023-07-07] MEDS: cholecalciferol (vitamin D3) 1,000 unit Tablet 2000 UNIT PO (08:25)
[2023-07-07] MEDS: pantoprazole DR 40 mg Tablet PO (08:25)
[2023-07-07] MEDS: carvedilol 12.5 mg Tablet PO (08:26)
[2023-07-07] MEDS: aspirin 325 mg Tablet PO (08:26)
[2023-07-07] MEDS: docusate sodium 100 mg Capsule PO (08:26)
[2023-07-07] MEDS: gabapentin 300 mg Capsule 600 MG PO (08:26)
[2023-07-07] MEDS: insulin lispro 100 unit/1 mL SUBCUT (08:27)
[2023-07-07] MEDS: duloxetine 30 mg Capsule PO (08:31)
[2023-07-07] MEDS: levETIRAcetam 500 mg Tablet PO (08:31)
--- NOTE | 2023-07-07 08:51 | PM.DCS ---
Discharge Providers Date of Admission: 07/04/23 13:15 Date of Discharge: July 07, 2023 Attending Provider at Admission: Terence Espinoza DO Attending Provider at Discharge: Terecne Espinoza DO Primary Care Provider: Virgilio Devries MD Diagnoses at Discharge Discharge Diagnosis (1) Fall: Status: Acute Qualifiers: Encounter type: initial encounter Qualified Code(s): W19.XXXA - Unspecified fall, initial encounter (2) Closed displaced fracture of right femoral neck: Status: Acute (3) Abnormal chest xray: Status: Acute (4) Hypertension: Status: Chronic Qualifiers: Hypertension type: primary hypertension Qualified Code(s): I10 - Essential (primary) hypertension (5) Diabetes mellitus type 2, controlled: Status: Chronic Qualifiers: Diabetes mellitus complication detail: with polyneuropathy Diabetes mellitus complication status: with neurologic complications Diabetes mellitus intermediate insulin use: without ferry terminal supervisor use Qualified Code(s): E11.42 - Type 2 diabetes mellitus with diabetic polyneuropathy (6) History of stroke: Status: Acute (7) Personal history of renal cancer: Status: Chronic (8) Allergy to iodinated contrast media: Status: Chronic (9) Presence of IVC filter: Status: Chronic (10) Benign prostatic hyperplasia with lower urinary tract symptoms: Status: Chronic (11) History of lumbar surgery: Status: Chronic Permanent problem details: 2020 Dr. Espinoza [facility] - Right L3/4 laminectomy with partial facetectomy, Right revision L4/5 laminectomy with partial facetectomy, Right revision L5/S1 laminectomy with partial facetectomy 2003 Dr. Hermila Duncan [facility] - Lumbar decompression 1995 [facility] - Lumbar decompression 1986 [place] - Lumbar decompression (12) Meningioma of cerebellum: Status: Chronic Permanent problem details: on chronic keppra due to history of seizures from this Reason for Visit Reason for Visit: Fall/ Hip shoulder pain Hospital Course Hospital Course Patient presented to the hospital after a mechanical fall. He landed on his right side and was complaining of severe pain in right hip. He already has residual right-sided weakness from hemorrhagic stroke in 2018. Patient was diagnosed with a right femoral neck fracture. Patient underwent surgical repair with Dr. Espinoza on 07/03. He also complained of heartburn during hospital stay. Cardiac cause was ruled out. Troponin series was drawn and EKG were checked. Heartburn improved with Tums. Patient has been working with physical therapy and rehab has been recommended. Patient will be sent to rehab in stable condition at this time. Eliquis 2.5 twice daily x 30 days has been given for DVT prophylaxis. Hemoglobin is 10.1 and has been stable since surgery. He will be given a repeat CBC prescription to recheck in 2 to 3 days. Blood pressure has been running soft. Losartan and amlodipine have been dose reduced. Physical Exam Narrative: laying in bed comfortably lungs clear to auscultation b/l abd soft non tender right sided weakness present Normal S1-S2 Appears well today. Denies being in pain. Urinary Catheter Management: De Luna Latex Free: Cath Placed During This Visit: yes, but has since been removed by the nurse Reason for Continuing Indwelling Catheter: Decision to DC Catheter Urinary Catheter Date of Insertion: 07/04/23 Date Urinary Catheter Removed: 07/05/23 Time Urinary Catheter Discontinued: 12:35 Discharge Data Studies Completed and Pending Completed Studies During Hospitalization Category Date Time Status CT bony pelvis 78673 Stat Cat Scan 07/04/23 10:58 Completed XR chest 1V portable [id number] Routine Exams 07/05/23 06:00 Completed XR chest 1V portable [id number] Urgent Exams 07/04/23 11:48 Completed XR hip RT 1V wo/w pel [id number] Routine Exams 07/04/23 14:57 Completed XR shoulder RT min 2V* [id number] Stat Exams 07/04/23 09:17 Completed CV. echo complete* [id number] Stat Ultrasound 07/05/23 11:06 Completed Radiology Impressions Shoulder X-Ray 07/04/23 09:17 IMPRESSION: No acute fracture or dislocation. Pelvis CT 07/04/23 10:58 IMPRESSION: Minimally displaced and impacted right femoral neck fracture. Hip X-Ray 07/04/23 14:57 IMPRESSION: Total right hip arthroplasty without abnormality. Chest X-Ray 07/05/23 06:00 IMPRESSION: There is some patchy subsegmental atelectasis versus subsegmental inflammation residual at the left lung base. Overall central and basal aeration does appear improved as well as lung volumes in the interval indicative of intervally improving aeration. Laboratory Results WBC 9.69 10^3/uL (3.29-11.43) 07/07/23 05:02 RBC 3.34 10^6/uL (3.85-5.65) L 07/07/23 05:02 Hgb 10.10 g/dL (11.27-16.99) L 07/07/23 05:02 Hct 30.5 % (37-53) L 07/07/23 05:02 MCV 91.3 fl (82-101) 07/07/23 05:02 MCH 30.2 pg (27-33) 07/07/23 05:02 MCHC 33.1 g/dL (30-55) 07/07/23 05:02 RDW 13.0 % (12.1-15.1) 07/07/23 05:02 Plt Count 160 10^3/cmm (157-399) 07/07/23 05:02 MPV 10.7 fL (7.4-10.4) H 07/07/23 05:02 Neut % (Auto) 69.1 % 07/07/23 05:02 Lymph % (Auto) 13.6 % 07/07/23 05:02 [place] % (Auto) 12.6 % 07/07/23 05:02 Eos % (Auto) 3.9 % 07/07/23 05:02 Baso % (Auto) 0.3 % 07/07/23 05:02 Neut # (Auto) 6.69 10^3/uL (1.8-7.7) 07/07/23 05:02 Lymph # (Auto) 1.3 10^3/uL (0.8-4.8) 07/07/23 05:02 [place] # (Auto) 1.2 10^3/uL (0.2-0.9) H 07/07/23 05:02 Eos # (Auto) 0.4 10^3/uL (0.0-0.8) 07/07/23 05:02 Baso # (Auto) 0.0 10^3/uL (0.0-0.1) 07/07/23 05:02 Nucleated RBC % (auto) 0 % 07/07/23 05:02 Nucleated RBCs # 0.0 /100WBC 07/07/23 05:02 Sodium 136 mmol/L (136-145) 07/07/23 05:02 Potassium 4.4 mmol/L (3.5-5.1) 07/07/23 05:02 Chloride 103 mmol/L (98-107) 07/07/23 05:02 Carbon Dioxide 27 mmol/L (22-29) 07/07/23 05:02 Anion Gap 10.4 (5-19) 07/07/23 05:02 BUN 25 mg/dL (8-23) H 07/07/23 05:02 Creatinine 0.7 mg/dL (0.7-1.2) 07/07/23 05:02 GFR Calculation 112.8 mL/min (90-130) 07/07/23 05:02 Glucose 173 mg/dL (65-115) H 07/07/23 05:02 POC Glucose 167 mg/dL (70-110) H 07/07/23 06:33 Calculated Osmolality 291 mOsm/kg (285-295) 07/07/23 05:02 Calcium 9.4 mg/dL (8.5-10.5) 07/07/23 05:02 Magnesium 2.0 mg/dL (1.7-2.3) 07/06/23 05:50 Total Bilirubin 1.3 mg/dL (0.15-1.2) H 07/06/23 05:50 AST 23 U/L (0-40) 07/06/23 05:50 ALT 23 U/L (0-41) 07/06/23 05:50 Alkaline Phosphatase 106 U/L (40-130) 07/06/23 05:50 Troponin T 5th Gen ng/L 12 ng/L (0-15) 07/05/23 04:45 Troponin T Baseline 15 ng/L (0-15) 07/05/23 11:30 Troponin T 120 Minute 16.22 ng/L (0-15) H 07/05/23 13:07 Delta Troponin T 1.22 ABS# (0-10) 07/05/23 13:07 Troponin T Hi Sens 6Hr 15.85 ng/L (0-15) H 07/05/23 17:50 Troponin T Hi Sens 6Hr Delta 0.85 ng/L (0-12) 07/05/23 17:50 NT-Pro-B Natriuret Pep < 36 pg/mL (0-125) 07/04/23 12:55 Total Protein 6.5 g/dL (6.6-8.7) L 07/06/23 05:50 Albumin 3.7 g/dL (3.5-5.2) 07/06/23 05:50 Globulin 2.8 g/dL (1.3-4.6) 07/06/23 05:50 Urine Color Yellow (Yellow) 07/04/23 12:09 Urine Appearance Clear (CLEAR) 07/04/23 12:09 Urine pH 5 (5-7) 07/04/23 12:09 Ur Specific [place] 1.025 (1.005-1.030) 07/04/23 12:09 Urine Protein 1+ (Negative) H 07/04/23 12:09 Urine Glucose (UA) Norm (Normal) 07/04/23 12:09 Urine Ketones 1+ (Negative) H 07/04/23 12:09 Urine Blood Neg (Negative) 07/04/23 12:09 Urine Nitrate Negative (Negative) 07/04/23 12:09 Urine Bilirubin Neg (Negative) 07/04/23 12:09 Urine Urobilinogen 1 mg/dL (Negative) H 07/04/23 12:09 Ur Leukocyte Esterase Trace (Negative) H 07/04/23 12:09 Urine RBC 0-4 /hpf (0-2) H 07/04/23 12:09 Urine WBC 0-4 /hpf (0-5) H 07/04/23 12:09 Ur Squamous Epith Cells 0-4 /hpf (0-5) H 07/04/23 12:09 Amorphous Sediment Not Reportable 07/04/23 12:09 Urine Bacteria Trace /hpf (NONE) 07/04/23 12:09 Urine Mucus 2+ /hpf 07/04/23 12:09 Coronavirus 229E (PCR) Not detected (NOT DETECT) 07/04/23 15:28 SARS-CoV-2 (PCR) Not detected (NOT DETECT) 07/04/23 15:28 SARS-CoV-2 Ag (Rapid) negative (Negative) 07/07/23 04:33 Vitals Last Vital Signs Temp 97.8 F 07/07/23 07:54 Pulse 77 07/07/23 07:55 Resp 16 07/07/23 07:55 BP 102/63 07/07/23 07:54 Pulse Ox 91 07/07/23 07:55 O2 Del Method Nasal Cannula 07/07/23 07:55 O2 Flow Rate 1 07/07/23 07:55 Discharge Plan Discharge Patient Disposition: Xfer SNF Condition: Stable Prescriptions: New hydrocodone-acetaminophen 5-325 mg Tablet 1 - 2 tab PO Q4H PRN (Reason: Breakthrough Pain) Qty: 20 0RF amlodipine 10 mg Tablet 5 mg PO QAM Qty: 30 0RF losartan 50 mg Tablet 50 mg PO DAILY Qty: 30 0RF Eliquis 2.5 mg tablet 2.5 mg PO BID 30 Days Qty: 60 0RF docusate sodium 100 mg Capsule 100 mg PO BID PRN (Reason: constipation) 14 Days Qty: 10 0RF pantoprazole 40 mg Tablet,Delayed Release (Dr/Ec) 40 mg PO DAILY Qty: 30 0RF Continued aspirin [Adult Low Dose Aspirin] 81 mg tablet,delayed release (DR/EC) 81 mg PO DAILY@12 duloxetine 30 mg capsule,delayed release(DR/EC) 30 mg PO BID Qty: 180 3RF gabapentin 600 mg tablet 600 mg PO Q8H carvedilol 12.5 mg tablet 12.5 mg PO BID atorvastatin 10 mg tablet 10 mg PO BEDTIME levetiracetam 500 mg tablet 500 mg PO BID tamsulosin 0.4 mg capsule 0.8 mg PO BEDTIME Vitamin D3 25 mcg (1,000 unit) Capsule 25 mcg PO QAM cyclobenzaprine 10 mg tablet 10 mg PO BEDTIME metformin 500 mg tablet 500 mg PO QPM hydrocodone-acetaminophen 5-325 mg tablet 1 tab PO BEDTIME triamcinolone acetonide 0.1 % cream 1 applic topical DAILY PRN (Reason: unknown) Discontinued amlodipine 10 mg tablet 10 mg PO QAM losartan 100 mg tablet 100 mg PO DAILY@12 Discharge Orders: Discharge Order (Routine); Ordered 07/07/23 Ordered By: Tila Oakley Referrals: [facility] [Outside] Terence Espinoza DO [Physician] - 07/12/23 1:30 pm () Virgilio Devries MD [Primary Care Provider] - Discharge Diet: Cardiac and Diabetic Discharge Activity: Limit activity as instructed, Use walker/crutches as instructed and As per PT/OT instructions Patient Instructions: Opioid Safety Activity Restrictions/Additional Instructions: You are being discharged from the hospital today during which time you have been under the care of Dr. Espinoza. You had a right hip fracture. You were treated for this injury with right hip hemiarthroplasty. You may resume you normal diet (including any special diets as directed by your primary doctor) as well as your home medications. You should follow up with you primary doctor if you have any questions regarding medication you took prior to your stay in the hospital. You may take your pain medication as prescribed. After the first few days, take your pain medication as needed. Do not drive or drink alcohol while taking your pain medication. Your injury may increase your risk of developing a blood clot,or DVT, in your arm or leg. This could potentially dislodge and travel to your lungs and become a life threatening condition called apulmonary embolus,or PE. You have been prescribed aspirin to be taken to prevent this. Frequent movement of the legs will also help prevent this from occurring. If you develop any new or worsening cough, chestpain, bloody sputum or shortness of breath, call 911 or go to the EmergencyRoom. Always keep your surgical incision/dressing clean and dry. If you experience increasing pain at your incision site, redness, swelling, increasing discharge, foul odors, or fevers (greater than 100.4), night sweats or chills you should call the office at the above number. If you feel this is an emergency you should be evaluated in the Emergency Department of a nearby hospital. Orthopedic Patient Instructions Summary: Weight Bearing: Weight-bear as tolerated Activity: As tolerated with anterior hip precautions. Diet: Regular. Wound Care: Keep dressing clean and dry. Change as needed Anticoagulation: Aspirin Pain Medication: Take only as needed. Ice, rest and elevation will be of great benefit. Please plan to follow-up oz Espinoza in 2 weeks. You will need to call the clinic [phone] to schedule this visit. Thank you far allowing me to participate in your care. Do not hesitate to call the office with any questions or concerns. Discharge Attestations Time Spent in Discharge Care*: greater than 30 min Quality Metrics Clinical Quality Measures [ No reported AMI, CVA or VTE this stay] Coding Level of Care Code Acute Code for Chg Fwd Diagnoses Fall, initial encounter W19.XXXA Encounter type: initial encounter Closed displaced fracture of right femoral neck S72.001A Abnormal chest xray R93.89 Primary hypertension I10 Hypertension type: primary hypertension Controlled type 2 diabetes mellitus with diabetic polyneuropathy, without long-term current use of insulin E11.42 Diabetes mellitus complication detail: with polyneuropathy Diabetes mellitus complication status: with neurologic complications Diabetes mellitus intermediate insulin use: without ferry terminal supervisor use History of stroke Z86.73 Personal history of renal cancer Z85.528 Allergy to iodinated contrast media Z91.041 Presence of IVC filter Z95.828 Benign prostatic hyperplasia with lower urinary tract symptoms N40.1 History of lumbar surgery Z98.890 Meningioma of cerebellum D32.0
[2023-07-07 11:47] LABS: Glucose Point of Care 165 mg/dL (70-110)
[2023-07-07 12:00] VITALS: BP 118/73; PULSE 78; RESP 16; TEMP 36.7; O2SAT 94
--- NOTE | 2023-07-07 13:53 | PC.NURSE ---
report called to Julianna sweeney [facility]
== END 2023-07-07 15:00 | DRG 522 ==
LOC: ER 12:24 → OR 12:46 → MEDSURG 16:08
PROVIDERS: Hospitalist; Internal Medicine; Admitting Provider Orthopaedic Surgery; Emergency Provider Physician Assistant; PCP Family Medicine; Visit Provider Orthopaedic Surgery
PROC: 0SRR0JA Replacement of Right Hip Joint, Femoral Surface with Synthetic Substitute, Uncemented, Open Approach (ICD-10-PCS; CPT 27125; principal; 2023-07-04 13:00)
DX: S72.001A Fracture of unspecified part of neck of right femur, initial encounter for closed fracture (principal); I69.951 Hemiplegia and hemiparesis following unspecified cerebrovascular disease affecting right dominant side; W01.0XXA Fall on same level from slipping, tripping and stumbling without subsequent striking against object, initial encounter; I10 Essential (primary) hypertension; E11.42 Type 2 diabetes mellitus with diabetic polyneuropathy; Z79.84 Long term (current) use of oral hypoglycemic drugs; Z85.528 Personal history of other malignant neoplasm of kidney; N40.1 Benign prostatic hyperplasia with lower urinary tract symptoms; R56.9 Unspecified convulsions; D32.0 Benign neoplasm of cerebral meninges; Z79.82 Long term (current) use of aspirin; Z95.828 Presence of other vascular implants and grafts; R12 Heartburn
CPT/HCPCS: 36415; 36416; 51702; 71045; 72192; 73030; 73501; 80048; 80053; 81001; 82962; 83735; 83880; 84484; 85025; 87426; 87635; 93005; 93306; 96372; 96374; 96375; 96376; 97110; 97116; 97162; 97165; 97530; 97535; 99285; C1776; J0131; J0690; J1100; J1170; J1815; J2405; J2704; J3010; J3480; J3490; J7030

== ENCOUNTER 2023-07-09 05:18 | Emergency (ER) | payer MEDICARE, SELFPAY ==
[2023-07-09 05:18] VITALS: BP 155/91; PULSE 94; RESP 16; TEMP 36.8; O2SAT 97; BMI 36.3
--- NOTE | 2023-07-09 05:26 | ED_ITS ---
HPI - General Adult 2 General: Chief complaint: General Medical Stated complaint: R sided spasms Time Seen by Provider: 07/09/23 05:19 History of Present Illness: Patient presents to the ER with complaints of right-sided spasms. Per the patient he has been having the spasms for 6 years since he had a stroke. But the nurse at the care home thinks it may be due to his recent right hip surgery and wanted him checked out. Patient denies any other complaints at this time other than very mild hip pain he rates a 1-1/2 out of 10 and he says the surgery went well and he is very pleased with it and he does not know why the nurse and over here and all he wants to do is go to sleep. Patient was just discharged from this facility on 07/07/[address] Espinoza performed right hip surgery secondary to a fracture. PFSH ED 2 PFSH: Medical History Benign prostatic hyperplasia with lower urinary tract symptoms Chronic thoracic back pain History of nonmelanoma skin cancer Subcutaneous cyst Cervical disc disease Osteoarthritis of lumbar spine Lumbar stenosis with neurogenic claudication Intervertebral disc disorder with radiculopathy of lumbosacral region Thoracic degenerative disc disease Thalamic hemorrhage with stroke 12/07/2017 Acute hemorrhage involving the left thalamus and basal ganglia Allergy to iodinated contrast media Meningioma of cerebellum on chronic keppra due to history of seizures from this Presence of IVC filter Thalamic pain syndrome Accelerated essential hypertension Diabetes mellitus History of renal cell cancer History of DVT (deep vein thrombosis) Labral tear of right hip joint Surgical History History of colonoscopy 02/2022 Dr Werner - several sessile polyps removed, few small internal hemorrhoids. Follow up recommended in 3 years (2024). History of lumbar surgery 2020 Dr. Espinoza [facility] - Right L3/4 laminectomy with partial facetectomy, Right revision L4/5 laminectomy with partial facetectomy, Right revision L5/S1 laminectomy with partial facetectomy 2003 Dr. Hermila Duncan [facility] - Lumbar decompression 1995 [facility] - Lumbar decompression 1986 [place] - Lumbar decompression History of hernia repair History of appendectomy H/O partial nephrectomy right Hx of cholecystectomy Family History Mother Stroke Grandmother Stroke Brother Stroke Social History Smoking and tobacco/nicotine status: never used tobacco/nicotine Second hand smoke exposure: No Alcohol intake: never Substance/Drug Use: never Household members: spouse Marital status: Current occupational status: retired and disabled Physical Exam 2 Const: COMMON NORMALS: no acute distress, average body habitus, patient oriented x3, no limitations, healthy appearing, alert and well nourished HENMT: COMMON NORMALS: normocephalic, atraumatic, hearing grossly normal bilaterally, external ears normal, Normal external nose present, moist oral mucous membranes and oropharynx normal HEAD & SCALP: normocephalic and atraumatic NOSE: Normal external nose present EXTERNAL EAR: Yes external ears normal Neck/C-Spine: COMMON NORMALS: no JVD Chest: COMMONS NORMALS: normal inspection of the chest and normal palpation of entire chest wall Resp: COMMON NORMALS: normal respiratory effort, No retractions, No use of accessory muscles and clear to auscultation bilaterally AUSCULTATION: clear to auscultation bilaterally Cardio: COMMON NORMALS: no JVD, regular rate, regular rhythm, S1 normal heart sound present, S2 normal heart sound present, No gallops present (Cardio), No clicks present (Cardio), No murmurs present (Cardio) and No rub (Cardio) R ATE: regular rate RHYTHM: regular rhythm HEART SOUNDS: S1 normal heart sound present and S2 normal heart sound present GI: COMMON NORMALS: Normal to inspection, nondistended, normoactive bowel sounds present, Soft to palpation, non-tender, No hepatosplenomegaly present and no masses PALPATION: Yes Soft to palpation and Yes No hepatosplenomegaly present Extremity: NARRATIVE EXTREMITY EXAM: 1+ pitting edema in right lower extremit y, trace on left lower extremity, Neuro: COMMON NORMALS: patient oriented x3 SENSORIUM/ORIENTATION: Yes alert Course 2 Vital Signs: Vital signs: Vital Signs Temperature 98.2 F 07/09/23 05:18 Pulse Rate 94 07/09/23 05:18 Respiratory Rate 16 07/09/23 05:18 Blood Pressure 155/91 07/09/23 05:18 Pulse Oximetry 97 07/09/23 05:18 Oxygen Delivery Me thod Room Air 07/09/23 05:18 MDM - General Adult Medical Decision Making Basic lab work was obtained CBC CMP magnesium, anticipate these to be stable from his lab work done 2 days ago. Patient state this muscle spasm is not new and not related to his hip surgery. Dissipate patient be discharged back to the care home. Medical Records I reviewed the patient's medical records. Lab Data I reviewed the patient's lab results. 07/09/23 05:40 07/09/23 05:40 Laboratory Results WBC 8.21 10^3/uL (3.29-11.43) 07/09/23 05:40 RBC 3.58 10^6/uL (3.85-5.65) L 07/09/23 05:40 Hgb 10.80 g/dL (11.27-16.99) L 07/09/23 05:40 Hct 31.4 % (37-53) L 07/09/23 05:40 MCV 87.7 fl (82-101) 07/09/23 05:40 MCH 30.2 pg (27-33) 07/09/23 05:40 MCHC 34.4 g/dL (30-55) 07/09/23 05:40 RDW 12.8 % (12.1-15.1) 07/09/23 05:40 Plt Count 233 10^3/cmm (157-399) 07/09/23 05:40 MPV 9.8 fL (7.4-10.4) 07/09/23 05:40 Neut % (Auto) 67.9 % 07/09/23 05:40 Lymph % (Auto) 13.2 % 07/09/23 05:40 [place] % (Auto) 13.0 % 07/09/23 05:40 Eos % (Auto) 4.3 % 07/09/23 05:40 Baso % (Auto) 0.7 % 07/09/23 05:40 Neut # (Auto) 5.58 10^3/uL (1.8-7.7) 07/09/23 05:40 Lymph # (Auto) 1.1 10^3/uL (0.8-4.8) 07/09/23 05:40 [place] # (Auto) 1.1 10^3/uL (0.2-0.9) H 07/09/23 05:40 Eos # (Auto) 0.4 10^3/uL (0.0-0.8) 07/09/23 05:40 Baso # (Auto) 0.1 10^3/uL (0.0-0.1) 07/09/23 05:40 Nucleated RBC % (auto) 0 % 07/09/23 05:40 Nucleated RBCs # 0.0 /100WBC 07/09/23 05:40 No radiology studies performed this visit Discharge Plan Discharge Patient Disposition: Home Clinical Impression: Muscle spasm Condition: Stable Prescriptions: No Action aspirin [Adult Low Dose Aspirin] 81 mg tablet,delayed release (DR/EC) 81 mg PO DAILY@12 duloxetine 30 mg capsule,delayed release(DR/EC) 30 mg PO BID Qty: 180 3RF gabapentin 600 mg tablet 600 mg PO Q8H carvedilol 12.5 mg tablet 12.5 mg PO BID atorvastatin 10 mg tablet 10 mg PO BEDTIME levetiracetam 500 mg tablet 500 mg PO BID tamsulosin 0.4 mg capsule 0.8 mg PO BEDTIME Vitamin D3 25 mcg (1,000 unit) Capsule 25 mcg PO QAM cyclobenzaprine 10 mg tablet 10 mg PO BEDTIME metformin 500 mg tablet 500 mg PO QPM hydrocodone-acetaminophen 5-325 mg tablet 1 tab PO BEDTIME triamcinolone acetonide 0.1 % cream 1 applic topical DAILY PRN (Reason: unknown) losartan 50 mg Tablet 50 mg PO DAILY Qty: 30 0RF amlodipine 10 mg Tablet 5 mg PO QAM Qty: 30 0RF docusate sodium 100 mg Capsule 100 mg PO BID PRN (Reason: constipation) 14 Days Qty: 10 0RF hydrocodone-acetaminophen 5-325 mg Tablet 1 - 2 tab PO Q4H PRN (Reason: Breakthrough Pain) Qty: 20 0RF pantoprazole 40 mg Tablet,Delayed Release (Dr/Ec) 40 mg PO DAILY Qty: 30 0RF Eliquis 2.5 mg tablet 2.5 mg PO BID 30 Days Qty: 60 0RF Discharge Orders: Discharge ED (Routine); Ordered 07/09/23 Ordered By: William Tomas Referrals: Virgilio Devries MD [Primary Care Provider] - 1 week Patient Instructions: Muscle Spasm (ED) Activity Restrictions/Additional Instructions: He had basic lab work performed in ER and it was reviewed against the lab work he had done 2 days ago. This does not show any acute changes or reasoning for your chronic muscle spasms. Please follow-up with your family practice physician for further evaluation testing as needed. Coding Level of Care Code ED Mortgage Loan Originator for Kathy Quinteros
[2023-07-09 05:45] LABS: Basophils # 0.1 10^3/uL (0.0-0.1); Basophils % 0.7 %; Eosinophils # 0.4 10^3/uL (0.0-0.8); Eosinophils % 4.3 %; Hematocrit 31.4 % (37-53); Lymphocytes # 1.1 10^3/uL (0.8-4.8); Lymphocytes % 13.2 %; Mean Corpuscular HGB Conc 34.4 g/dL (30-55); Mean Corpuscular Hemoglobin 30.2 pg (27-33); Mean Corpuscular Volume 87.7 fl (82-101); Mean Platelet Volume 9.8 fL (7.4-10.4); Monocytes # 1.1 10^3/uL (0.2-0.9); Neutrophils # 5.58 10^3/uL (1.8-7.7); Neutrophils % 67.9 %; Nucleated Red Blood Cells % 0 %; Platelet Count 233 10^3/cmm (157-399); Red Blood Count 3.58 10^6/uL (3.85-5.65); Red Cell Distribution Width 12.8 % (12.1-15.1); White Blood Count 8.21 10^3/uL (3.29-11.43)
[2023-07-09 06:00] VITALS: BP 153/88; O2SAT 93
[2023-07-09 06:05] LABS: Alanine Aminotransferase 34 U/L (0-41); Albumin Level 3.4 g/dL (3.5-5.2); Alkaline Phosphatase 95 U/L (40-130); Anion Gap 14.9 (5-19); Aspartate Amino Transferase 21 U/L (0-40); Blood Urea Nitrogen 14 mg/dL (8-23); Calcium 9.2 mg/dL (8.5-10.5); Carbon Dioxide 26 mmol/L (22-29); Chloride 101 mmol/L (98-107); Creatinine Clr Calc Pharmacy 132.9662; Globulin 3.1 g/dL (1.3-4.6); Glomerular Filtration Rate 166.4 mL/min (90-130); Glucose 176 mg/dL (65-115); Magnesium 1.6 mg/dL (1.7-2.3); Osmolality Calculated 291 mOsm/kg (285-295); Potassium 3.9 mmol/L (3.5-5.1); Sodium 138 mmol/L (136-145); Total Bilirubin 1.1 mg/dL (0.15-1.2); Total Protein 6.5 g/dL (6.6-8.7)
[2023-07-09 06:34] VITALS: BP 156/87; RESP 16; O2SAT 94
== END 2023-07-09 07:30 | disposition home or self-care (01) ==
PROVIDERS: Emergency Provider Emergency Medicine; PCP Family Medicine
DX: M62.838 Other muscle spasm (principal); Z79.82 Long term (current) use of aspirin; Z79.01 Long term (current) use of anticoagulants; I10 Essential (primary) hypertension; E11.9 Type 2 diabetes mellitus without complications; Z85.528 Personal history of other malignant neoplasm of kidney
CPT/HCPCS: 80053; 83735; 85025; 99283

== ENCOUNTER → 2023-07-12 13:22 | Outpatient (BNVA) | payer MEDICARE, SELFPAY | PROVIDERS: PCP Family Medicine; Visit Provider Orthopaedic Surgery | DX: Z98.890 Other specified postprocedural states (principal) | CPT/HCPCS: 99024 ==

== ENCOUNTER → 2023-07-21 14:23 | Outpatient (BNVA) | payer MEDICARE, SELFPAY | PROVIDERS: PCP Family Medicine; Visit Provider Orthopaedic Surgery | DX: M25.551 Pain in right hip (principal); Z98.890 Other specified postprocedural states | CPT/HCPCS: 73502; 99024 ==

== ENCOUNTER → 2023-08-03 09:18 | Outpatient (BNVA) | payer MEDICARE, SELFPAY | PROVIDERS: PCP Family Medicine; Visit Provider Family Medicine | DX: Z51.81 Encounter for therapeutic drug level monitoring (principal); E11.9 Type 2 diabetes mellitus without complications; M62.838 Other muscle spasm; I10 Essential (primary) hypertension; E11.42 Type 2 diabetes mellitus with diabetic polyneuropathy; Z98.890 Other specified postprocedural states; Z86.718 Personal history of other venous thrombosis and embolism | CPT/HCPCS: 80053; 83036; 83735; 85025 ==

== ENCOUNTER → 2023-08-18 10:57 | Outpatient (BNVA) | payer MEDICARE, SELFPAY | PROVIDERS: PCP Family Medicine; Visit Provider Orthopaedic Surgery | DX: Z98.890 Other specified postprocedural states (principal); S72.001A Fracture of unspecified part of neck of right femur, initial encounter for closed fracture; X58.XXXA Exposure to other specified factors, initial encounter | CPT/HCPCS: 73502; 99024 ==

== ENCOUNTER → 2023-09-27 08:36 | Outpatient (BNVA) | payer MEDICARE, SELFPAY | PROVIDERS: PCP Family Medicine; Visit Provider Podiatrist Foot & Ankle Surgery | DX: B35.1 Tinea unguium (principal); E11.42 Type 2 diabetes mellitus with diabetic polyneuropathy; M20.40 Other hammer toe(s) (acquired), unspecified foot; M20.11 Hallux valgus (acquired), right foot; M20.12 Hallux valgus (acquired), left foot; Z79.84 Long term (current) use of oral hypoglycemic drugs | CPT/HCPCS: 11721 ==

== ENCOUNTER → 2023-09-29 09:41 | Outpatient (BNVA) | payer MEDICARE, SELFPAY | PROVIDERS: PCP Family Medicine; Visit Provider Orthopaedic Surgery | DX: Z98.890 Other specified postprocedural states (principal) | CPT/HCPCS: 73502; 99024 ==

== ENCOUNTER → 2023-11-09 09:34 | Outpatient (BNVA) | payer MEDICARE, SELFPAY | PROVIDERS: PCP Family Medicine; Visit Provider Nurse Practitioner Family | DX: L57.0 Actinic keratosis (principal); L57.8 Other skin changes due to chronic exposure to nonionizing radiation; L81.4 Other melanin hyperpigmentation; Z85.828 Personal history of other malignant neoplasm of skin | CPT/HCPCS: 17004; 99214 ==

== ENCOUNTER → 2023-12-12 08:05 | Outpatient (BNVA) | payer MEDICARE, SELFPAY | PROVIDERS: PCP Family Medicine; Visit Provider Podiatrist Foot & Ankle Surgery | DX: B35.1 Tinea unguium (principal); E11.42 Type 2 diabetes mellitus with diabetic polyneuropathy; M20.11 Hallux valgus (acquired), right foot; M20.12 Hallux valgus (acquired), left foot; M20.41 Other hammer toe(s) (acquired), right foot; M20.42 Other hammer toe(s) (acquired), left foot; Z79.84 Long term (current) use of oral hypoglycemic drugs | CPT/HCPCS: 11721 ==

== ENCOUNTER → 2024-02-15 11:25 | Outpatient (BNVA) | payer MEDICARE, SELFPAY | PROVIDERS: PCP Family Medicine; Visit Provider Podiatrist Foot & Ankle Surgery | DX: B35.1 Tinea unguium (principal); E11.42 Type 2 diabetes mellitus with diabetic polyneuropathy; M20.10 Hallux valgus (acquired), unspecified foot; M20.40 Other hammer toe(s) (acquired), unspecified foot; Z79.84 Long term (current) use of oral hypoglycemic drugs | CPT/HCPCS: 11721 ==

== ENCOUNTER → 2024-04-19 08:21 | Outpatient (BNVA) | payer MEDICARE, SELFPAY | PROVIDERS: PCP Family Medicine; Visit Provider Podiatrist Foot & Ankle Surgery | DX: E11.42 Type 2 diabetes mellitus with diabetic polyneuropathy (principal); B35.1 Tinea unguium; M20.40 Other hammer toe(s) (acquired), unspecified foot; M20.11 Hallux valgus (acquired), right foot; M20.12 Hallux valgus (acquired), left foot; Z79.84 Long term (current) use of oral hypoglycemic drugs | CPT/HCPCS: 11721 ==

== ENCOUNTER → 2024-05-07 12:06 | Outpatient (BNVA) | payer MEDICARE, SELFPAY | PROVIDERS: PCP Family Medicine; Visit Provider Family Medicine | DX: Z00.00 Encounter for general adult medical examination without abnormal findings (principal); Z13.6 Encounter for screening for cardiovascular disorders; E11.9 Type 2 diabetes mellitus without complications; N40.1 Benign prostatic hyperplasia with lower urinary tract symptoms; E55.9 Vitamin D deficiency, unspecified; Z51.81 Encounter for therapeutic drug level monitoring | CPT/HCPCS: 80053; 80061; 82306; 83036; 84153; 85025 ==

== ENCOUNTER → 2024-05-09 08:58 | Outpatient (BNVA) | payer MEDICARE, SELFPAY | PROVIDERS: PCP Family Medicine; Visit Provider Nurse Practitioner Family | DX: L57.0 Actinic keratosis (principal); L57.8 Other skin changes due to chronic exposure to nonionizing radiation; X32.XXXA Exposure to sunlight, initial encounter; L81.4 Other melanin hyperpigmentation; L72.0 Epidermal cyst; D23.5 Other benign neoplasm of skin of trunk; Z08 Encounter for follow-up examination after completed treatment for malignant neoplasm; Z85.858 Personal history of malignant neoplasm of other endocrine glands | CPT/HCPCS: 17000; 99214 ==

== ENCOUNTER → 2024-06-20 08:23 | Outpatient (BNVA) | payer MEDICARE, SELFPAY | PROVIDERS: PCP Family Medicine; Visit Provider Podiatrist Foot & Ankle Surgery | DX: E11.42 Type 2 diabetes mellitus with diabetic polyneuropathy (principal); B35.1 Tinea unguium; M20.11 Hallux valgus (acquired), right foot; M20.12 Hallux valgus (acquired), left foot; M20.41 Other hammer toe(s) (acquired), right foot; Z79.84 Long term (current) use of oral hypoglycemic drugs; M20.42 Other hammer toe(s) (acquired), left foot | CPT/HCPCS: 11721 ==

== ENCOUNTER → 2024-08-23 08:40 | Outpatient (BNVA) | payer MEDICARE, SELFPAY | PROVIDERS: PCP Family Medicine; Visit Provider Podiatrist Foot & Ankle Surgery | DX: M79.671 Pain in right foot (principal); E11.42 Type 2 diabetes mellitus with diabetic polyneuropathy; B35.1 Tinea unguium; M20.10 Hallux valgus (acquired), unspecified foot; M20.40 Other hammer toe(s) (acquired), unspecified foot; Z79.84 Long term (current) use of oral hypoglycemic drugs | CPT/HCPCS: 11721; 73630; 99213 ==

== ENCOUNTER → 2024-10-25 08:27 | Outpatient (BNVA) | payer MEDICARE, SELFPAY | PROVIDERS: PCP Family Medicine; Visit Provider Podiatrist Foot & Ankle Surgery | DX: E11.42 Type 2 diabetes mellitus with diabetic polyneuropathy (principal); B35.1 Tinea unguium; M20.10 Hallux valgus (acquired), unspecified foot; M20.40 Other hammer toe(s) (acquired), unspecified foot | CPT/HCPCS: 11721 ==

== ENCOUNTER → 2024-11-12 09:13 | Outpatient (BNVA) | payer MEDICARE, SELFPAY | PROVIDERS: PCP Family Medicine; Visit Provider Nurse Practitioner Family | DX: L57.8 Other skin changes due to chronic exposure to nonionizing radiation (principal); X32.XXXA Exposure to sunlight, initial encounter; L57.0 Actinic keratosis; L81.4 Other melanin hyperpigmentation; D22.5 Melanocytic nevi of trunk; D23.71 Other benign neoplasm of skin of right lower limb, including hip; L56.5 Disseminated superficial actinic porokeratosis (DSAP); Z08 Encounter for follow-up examination after completed treatment for malignant neoplasm; Z85.828 Personal history of other malignant neoplasm of skin; D48.5 Neoplasm of uncertain behavior of skin | CPT/HCPCS: 11102; 17000; 99213 ==

== ENCOUNTER → 2025-01-03 08:21 | Outpatient (BNVA) | payer MEDICARE, SELFPAY | PROVIDERS: PCP Family Medicine; Visit Provider Podiatrist Foot & Ankle Surgery | DX: E11.8 Type 2 diabetes mellitus with unspecified complications (principal); B35.1 Tinea unguium; E11.42 Type 2 diabetes mellitus with diabetic polyneuropathy; M20.10 Hallux valgus (acquired), unspecified foot; M20.40 Other hammer toe(s) (acquired), unspecified foot; M79.671 Pain in right foot; Z79.84 Long term (current) use of oral hypoglycemic drugs | CPT/HCPCS: 11056; 11721; 99213 ==